=== PATIENT | male | born 1965 | race Caucasian/White ===

== ENCOUNTER 2020-10-16 06:24 | Outpatient (REF) | payer BC, SELFPAY | END 2020-10-16 06:25 | disposition home or self-care (01) | LOC: HO.LAB 06:24 | PROVIDERS: PCP Internal Medicine; Visit Provider Internal Medicine | DX: Z20.828 Contact with and (suspected) exposure to other viral communicable diseases (principal) | CPT/HCPCS: C9803; U0003 ==

== ENCOUNTER 2021-05-23 09:55 | Outpatient (REF) | payer BC, SELFPAY ==
[2021-05-23 10:40] LABS: MANUAL DIFF FLAG NO
[2021-05-23 10:54] LABS: Basophils Absolute Auto 0.1 X10*3/uL (0.0-0.2); Basophils Percent Auto 0.5 % (0-2); Eosinophils Absolute Auto 0.3 X10*3/uL (0.0-0.4); Eosinophils Percent Auto 3.2 % (0-4); Hematocrit 49.7 % (42-52); Hemoglobin 16.6 g/dl (14.0-18.0); Imm Gran Abs Auto 0.03 X10*3/uL (0.00-0.03); Imm Gran Pct Auto 0.3 % (0.0-0.4); Lymphocytes Absolute Auto 1.4 X10*3/uL (1.2-4.9); Lymphocytes Percent Auto 14.2 % (20-40); Mean Corpuscular HGB Conc 33.4 g/dl (31.0-36.0); Mean Corpuscular Hemoglobin 30.4 pg (27.0-33.0); Mean Platelet Volume 10.7 fL (9.4-12.4); Monocytes Absolute Auto 1.1 X10*3/uL (0.1-1.2); Monocytes Percent Auto 11.1 % (2-11); Neutrophils Absolute Auto 6.7 X10*3/uL (2.0-8.3); Neutrophils Percent Auto 70.7 % (45-73); Platelet Count 249 X10*3/uL (160-400); Red Blood Count 5.46 X10*6/uL (4.60-5.80); Red Cell Distribution Width 12.7 % (11.0-16.0); White Blood Count 9.5 X10*3/uL (4.8-10.8)
[2021-05-23 11:21] LABS: Alanine Aminotransferase 25 U/L (0-40); Albumin Level 4.2 g/dL (3.5-5.0); Alkaline Phosphatase 79 U/L (39-117); Anion Gap 12 (12-20); Aspartate Amino Transferase 16 U/L (5-37); Bilirubin Total 0.5 mg/dL (0.0-1.0); Blood Urea Nitrogen 14 mg/dL (9-16); Calcium 9.9 mg/dL (8.4-10.2); Carbon Dioxide 31 mmol/L (22-29); Chloride 104 mmol/L (96-108); Cholesterol 182 mg/dL; Estimated Glomerular Filt Rate > 60; Glucose Fasting 130 mg/dL (60-99); HDL Cholesterol 46 mg/dL; LDL Cholesterol Calculated 122 mg/dl; Potassium 4.6 mmol/L (3.3-5.1); Sodium 142 mmol/L (135-145); Total Protein 7.3 g/dL (6.5-8.0); Triglycerides 70 mg/dL
[2021-05-23 11:35] LABS: Thyroid Stimulating Hormone 0.64 uIU/mL (0.32-4.0)
== END 2021-05-23 09:56 | disposition home or self-care (01) ==
LOC: HO.LAB 09:55
PROVIDERS: PCP Internal Medicine; Visit Provider Internal Medicine
DX: Z00.00 Encounter for general adult medical examination without abnormal findings (principal); Z20.822 Contact with and (suspected) exposure to COVID-19; R09.89 Other specified symptoms and signs involving the circulatory and respiratory systems; E11.9 Type 2 diabetes mellitus without complications; E03.9 Hypothyroidism, unspecified
CPT/HCPCS: 80053; 80061; 84443; 85025; U0003; U0005

== ENCOUNTER 2021-05-24 10:05 | Outpatient (REF) | payer BC, SELFPAY ==
--- NOTE | ~2021-05-24 | XR_ITS ---
EXAMINATION: XR CHEST CLINICAL INFORMATION: Cough COMPARISON: None TECHNIQUE: 2 views of the chest were obtained. FINDINGS: No significant abnormality is noted involving the heart, lungs, mediastinum, bony thorax or soft tissues. XR/XR chest 2V IMPRESSION: No acute disease.
== END 2021-05-24 10:06 | disposition home or self-care (01) ==
LOC: HO.HMGCX 10:05
PROVIDERS: PCP Internal Medicine; Visit Provider Hospitalist
DX: Z20.822 Contact with and (suspected) exposure to COVID-19 (principal); R05 Cough
CPT/HCPCS: 71046; U0003; U0005

== ENCOUNTER 2021-05-31 07:51 | Emergency (ER) | payer BC, SELFPAY ==
[2021-05-31] VITALS (8 sets, daily range): BP systolic 118–142; BP diastolic 67–88; PULSE 63–79; RESP 12–20; TEMP 36.6–36.7; O2SAT 95–99; BMI 26.6
--- NOTE | ~2021-05-31 | CT_ITS ---
EXAMINATION: CT ANGIOGRAM OF THE CHEST WITH AND WITHOUT CONTRAST (CT PULMONARY ANGIOGRAM FOR PE) CLINICAL INFORMATION: Reason for Exam PE or Pneumonia? COMPARISON: Chest x-ray of same day TECHNIQUE: Prior to contrast administration, noncontrast localization images were obtained. Subsequently, multidetector volumetric imaging was performed from the thoracic inlet to below the diaphragms following the administration of 66 mL Omnipaque 350 intravenous contrast. No contrast reaction reported Sagittal, coronal, and MIP oblique sagittal reformatted images were obtained on the CT workstation, uploaded to PACS, and reviewed. This CT examination was performed using dose optimization techniques as appropriate, variously including the following: *Automated exposure control *Adjustment of mA and/or kV according to patient size (this includes techniques or standardized protocols for targeted exams where dose is matched to indication/reason for exam; i.e. extremities or head) *Use of iterative reconstruction technique Total exam dose-length product 292 mGy-cm FINDINGS: QUALITY OF STUDY/CONTRAST BOLUS: Satisfactory. PULMONARY ARTERIES: No central or segmental pulmonary emboli. THORACIC AORTA: No aneurysm or dissection. LUNG: No focal consolidation, nodules or masses. There are some scattered regions of nonspecific groundglass opacity present. No confluent pneumonitis is seen. Central airways are patent. No bronchiectasis. No suspicious lung nodules identified. PLEURA: No pleural effusion or pneumothorax. MEDIASTINUM: Visualized thyroid unremarkable. Normal heart size. No pericardial effusion. No hilar or mediastinal lymphadenopathy. No evidence of septal bowing or right heart strain. CHEST WALL/AXILLA: No axillary or internal mammary lymphadenopathy. OSSEOUS STRUCTURES: No acute or suspicious osseous abnormality. UPPER ABDOMEN: Unremarkable. No reflux of contrast into the hepatic veins to suggest elevated right heart pressures. CT/CT angio chest PE protocol IMPRESSION: No evidence of acute pulmonary artery embolus. No evidence of thoracic aortic aneurysm or dissection. VTE: negative
--- NOTE | ~2021-05-31 | XR_ITS ---
EXAMINATION: XR CHEST CLINICAL INFORMATION: Cough 1 week COMPARISON: None TECHNIQUE: Frontal view of the chest was obtained. FINDINGS: The lungs are well-expanded and clear. The heart size and pulmonary vascularity is normal. There is mild spondylosis dorsal spine. No lytic process. XR/XR chest 1V IMPRESSION: Unremarkable chest examination.
--- NOTE | 2021-05-31 09:36 | ECG_ITS ---
Test Reason : SOB Blood Pressure : / mmHG Vent. Rate : 074 BPM Atrial Rate : 074 BPM P-R Int : 144 ms QRS Dur : 096 ms QT Int : 366 ms P-R-T Axes : 044 -35 009 degrees QTc Int : 406 ms Normal sinus rhythm Left axis deviation Minimal voltage criteria for LVH, may be normal variant Abnormal ECG No previous ECGs available Referred By: Kaleb Grubbs Electronically Signed By:LEX BUTTS
[2021-05-31] MEDS: Albuterol Sulfate (0.083%) 2.5 MG/3 ML VIAL.NEB 5 MG INHALE (09:42)
--- NOTE | 2021-05-31 09:45 | PC.NURSE ---
RT at bedside starting a HFN treatment for patient. Pt continues to have intermittent coughing.
[2021-05-31] MEDS: guaiFEN/Codeine SF 200/20/10ML 10 ML LIQUID PO (09:48)
--- NOTE | 2021-05-31 09:58 | ED.SOB ---
HPI - SOB/Dyspnea General Chief Complaint: Dyspnea Stated Complaint: Sob Time Seen by Provider: 05/31/21 09:13 Source: patient Mode of arrival: ambulatory Limitations: no limitations History of Present Illness HPI Narrative: Patient presents to ED for pleuritic chest pain that is worse on exertion. Patient states also having cough with green phlegm. Patient denies any swelling of lower extremities, calf pain, recent long travel, recent surgery, abdominal pain, headache, dizziness, dysuria, hematuria, or flank pain. Patient states he was vaccinated with [employer] for COVID. Patient states he took last dose of doxycycline yesterday. MD elicited complaint: shortness of breath, cough and pain with inspiration Related Data Previous Rx's Medication Instructions Recorded doxycycline hyclate 100 mg tablet 100 mg PO BID #14 tab 05/24/21 prednisone 20 mg tablet 20 mg PO .COMPLEX #18 tab 05/24/21 amoxicillin 500 mg capsule 1,000 mg PO TID 5 Days #30 cap 05/31/21 benzonatate 100 mg capsule 100 mg PO TID PRN #18 cap 05/31/21 (Parvin Dumont) Allergies Allergy/AdvReac Type Severity Reaction Status Date / Time No Known Allergies Allergy Verified 05/24/21 09:54 Review of Systems Review of Systems: Yes all other systems are reviewed and are negative Constitutional: Constitutional: Reports as per HPI, Reports no additional constitutional complaints and Reports fatigue Eyes: Eyes: Reports as per HPI and Reports no additional eye complaints ENT: Reports system reviewed and no additional complaints, except as documented and Reports as per HPI Cardiovascular: Cardiovascular: Reports as per HPI, Reports no additional cardiovascular complaints and Reports chest pain with activity Respiratory: Respiratory: Reports as per HPI, Reports no additional respiratory complaints, Reports excessive phlegm production (Green), Reports pain on inspiration and Reports pain with cough Gastrointestinal: Gastrointestinal: Reports as per HPI and Reports no additional gastrointestinal complaints Genitourinary: Genitourinary: Reports no additional male genitourinary complaints and Reports as per HPI Musculoskeletal: Musculoskeletal: Reports no additional musculoskeletal complaints and Reports as per HPI Integumentary/Breasts: Skin/Breast: Reports system reviewed and no additional complaints, except as docu and Reports as per HPI Neurologic: Reports system reviewed and no additional complaints, except as documented and Reports as per HPI Endocrine: Endocrine: Reports fatigue [facility] Past Medical History Surgical History History of ankle surgery History of carpal tunnel release History of knee surgery Family History Family History Father Bone cancer Mother Alzheimer's dementia Brother In good health Brother In good health Sister In good health Sister In good health Sister In good health Sister In good health Social History Social History Alcohol intake: current Alcohol intake frequency: holidays/special occasions only Alcohol type: wine Patient Tobacco Use Status: Never used Tobacco Use of substances other than those prescribed or required for medical reasons: No Advance Directives: No Advance Directives Information Provided: No Physical Exam Vital Signs: Vital Signs: Last Vital Signs Temp 98.0 F 05/31/21 14:09 Pulse 73 05/31/21 15:22 Resp 14 05/31/21 15:22 BP 129/84 05/31/21 15:22 Pulse Ox 97 05/31/21 15:22 Body Mass Index 26.6 Const: General: cooperative, healthy appearing, comfortable, no acute distress, well developed, alert, awake and Physically active Orientation/consciousness: patient oriented x3 HENMT: Head: Yes normal to inspection, Yes No palpable skull fracture present, Yes normocephalic, Yes atraumatic and No abrasion Ears: hearing grossly normal bilaterally, external ears normal, TM's normal bilaterally, TM normal on the right, TM normal on the left, EAC's normal, mastoids normal and no periauricular adenopathy General nose exam: Normal external nose present and Normal nares present Eyes: General: appearance normal, both eyes and all related structures Neck: Neck: Yes normal visual inspection, Yes full ROM, Yes no lymphadenopathy, Yes no meningeal signs, Yes trachea midline, Yes supple and No tender Chest: Chest palpation & inspection: normal inspection of the chest and normal palpation of entire chest wall Resp: Effort & Inspection: normal respiratory effort and able to speak in complete sentences Auscultation: clear to auscultation bilaterally Cardio: Jugular venous distension: no JVD Heart sounds: S1 normal heart sound present and S2 normal heart sound present GI: Inspection: Yes normal to inspection and No abdominal wall ecchymosis Palpation (GI): Soft to palpation, not firm, nontender, no guarding and not rigid : General: No CVA tenderness and Yes no CVA tenderness Back/Spine/Pelvis: Back: no CVA tenderness, No CVA tenderness and No back tenderness Skin: General skin exam: no rashes or lesions noted and elasticity normal Neuro: General: patient oriented x3, gait normal, no meningeal signs and absent sensation to monofilament Cranial nerves: Yes CN's II-XII intact bilaterally Extrem: Other: Lower extremities negative for any swelling, pitting edema, calf tenderness. General: Yes normal to inspection and Yes full ROM Right lower extremity: normal to inspection and full ROM Psych: Appearance: grossly normal, well kempt and not disheveled Course Course Course Narrative: Patient will have medical evaluation and will be given albuterol inhaler and cough medication Reevaluation(s) Reevaluation #1: Patient's troponin, EKG and D-dimer came back negative. Has a white count [id number]. Patient vital signs are stable. Chest x-ray negative for pneumonia. Was sent for chest CT Time: 09:49 Reevaluation #2: Chest CT a come back negative for PE and states no pneumonitis, consolidation, or obvious pneumonia. It does states ground-glass opacity. Case discussed with Dr. Hercules and patiet can be discharged with oral amoxicillin Time: 15:47 MDM - SOB/Dyspnea Lab Data Result diagrams: 05/31/21 09:49 05/31/21 09:49 Labs: Lab Results 05/31/21 05/31/21 05/31/21 Range/Units 09:49 09:49 09:49 WBC 16.9 H (4.8-10.8) X10*3/uL RBC 5.40 (4.60-5.80) X10*6/uL Hgb 16.2 (14.0-18.0) g/dl Hct 47.6 (42-52) % MCV 88.1 (80-98) fL MCH 30.0 (27.0-33.0) pg MCHC 34.0 (31.0-36.0) g/dl RDW 12.9 (11.0-16.0) % Plt Count 280 (160-400) X10*3/uL MPV 10.0 (9.4-12.4) fL Immature Gran % (Auto) Cancelled Neut % (Auto) Cancelled Lymph % (Auto) Cancelled [place] % (Auto) Cancelled Eos % (Auto) Cancelled Baso % (Auto) Cancelled Lymph # (Auto) Cancelled [place] # (Auto) Cancelled Eos # (Auto) Cancelled Baso # (Auto) Cancelled Abs Immat Gran (auto) Cancelled Absolute Neuts (auto) Cancelled Absolute Nucleated RBC 0.000 (0.0-0.012) X10*3/uL Nucleated RBC % (auto) 0.0 (0.0-0.2) /100WBC Neutrophils % (Manual) 81 H (45-73) % Band Neutrophils % 2 L (3-5) % Lymphocytes % (Manual) 8 L (20-40) % Monocytes % (Manual) 8 (2-11) % Eosinophils % (Manual) 1 (0-4) % Abs Neuts (Manual) 14.0 H (2.2-7.9) X10*3/uL Lymphocytes # (Manual) 1.4 (0.6-4.8) X10*3/uL Monocytes # (Manual) 1.4 H (0.0-1.2) X10*3/uL Eosinophils # (Manual) 0.2 (0.0-0.8) X10*3/UL Platelet Estimate NORMAL (NORMAL) Plt Morphology Comment NORMAL RBC Morphology NORMAL PT 10.4 (9.9-13.0) SEC INR 0.9 (0.9-1.1) APTT 27.1 (24.1-38.0) SEC D-Dimer < 200 NG/ML Sodium 141 (135-145) mmol/L Potassium 4.8 (3.3-5.1) mmol/L Chloride 106 (96-108) mmol/L Carbon Dioxide 25 (22-29) mmol/L Anion Gap 15 (12-20) BUN 17 H (9-16) mg/dL Creatinine 0.87 (0.5-1.4) mg/dL Estim Creat Clear Calc 92.5 Estimated GFR > 60 Random Glucose 124 H (60-115) mg/dL Calcium 9.4 (8.4-10.2) mg/dL Ferritin 211 (20-250) ng/mL Total Bilirubin 0.4 (0.0-1.0) mg/dL AST 18 (5-37) U/L ALT 24 (0-40) U/L Alkaline Phosphatase 66 (39-117) U/L Lactate Dehydrogenase 229 (118-273) U/L Troponin I High Sens (<3.5-35.0) ng/L B-Natriuretic Peptide (<100) pg/mL Total Protein 6.6 (6.5-8.0) g/dL Albumin 3.8 (3.5-5.0) g/dL Procalcitonin ng/mL Coronavirus (PCR) (Negative) Influenza Type A (PCR) (Negative) Influenza Type B (PCR) (Negative) RSV RNA Qual (PCR) (Negative) 05/31/21 05/31/21 05/31/21 Range/Units 09:49 09:49 09:49 WBC (4.8-10.8) X10*3/uL RBC (4.60-5.80) X10*6/uL Hgb (14.0-18.0) g/dl Hct (42-52) % MCV (80-98) fL MCH (27.0-33.0) pg MCHC (31.0-36.0) g/dl RDW (11.0-16.0) % Plt Count (160-400) X10*3/uL MPV (9.4-12.4) fL Immature Gran % (Auto) Neut % (Auto) Lymph % (Auto) [place] % (Auto) Eos % (Auto) Baso % (Auto) Lymph # (Auto) [place] # (Auto) Eos # (Auto) Baso # (Auto) Abs Immat Gran (auto) Absolute Neuts (auto) Absolute Nucleated RBC (0.0-0.012) X10*3/uL Nucleated RBC % (auto) (0.0-0.2) /100WBC Neutrophils % (Manual) (45-73) % Band Neutrophils % (3-5) % Lymphocytes % (Manual) (20-40) % Monocytes % (Manual) (2-11) % Eosinophils % (Manual) (0-4) % Abs Neuts (Manual) (2.2-7.9) X10*3/uL Lymphocytes # (Manual) (0.6-4.8) X10*3/uL Monocytes # (Manual) (0.0-1.2) X10*3/uL Eosinophils # (Manual) (0.0-0.8) X10*3/UL Platelet Estimate (NORMAL) Plt Morphology Comment RBC Morphology PT (9.9-13.0) SEC INR (0.9-1.1) APTT (24.1-38.0) SEC D-Dimer NG/ML Sodium (135-145) mmol/L Potassium (3.3-5.1) mmol/L Chloride (96-108) mmol/L Carbon Dioxide (22-29) mmol/L Anion Gap (12-20) BUN (9-16) mg/dL Creatinine (0.5-1.4) mg/dL Estim Creat Clear Calc Estimated GFR Random Glucose (60-115) mg/dL Calcium (8.4-10.2) mg/dL Ferritin (20-250) ng/mL Total Bilirubin (0.0-1.0) mg/dL AST (5-37) U/L ALT (0-40) U/L Alkaline Phosphatase (39-117) U/L Lactate Dehydrogenase (118-273) U/L Troponin I High Sens < 3.5 (<3.5-35.0) ng/L B-Natriuretic Peptide 17 (<100) pg/mL Total Protein (6.5-8.0) g/dL Albumin (3.5-5.0) g/dL Procalcitonin 0.02 ng/mL Coronavirus (PCR) NEGATIVE (Negative) Influenza Type A (PCR) NEGATIVE (Negative) Influenza Type B (PCR) NEGATIVE (Negative) RSV RNA Qual (PCR) NEGATIVE (Negative) ECG Data Interpretation: Normal sinus rhythm. Ventricular rate 74. Pr interval 144. QRS 96. QTC 4 6. Negative STEMI Discharge Plan Discharge Clinical Impression: Community acquired pneumonia Patient Disposition: Home, Self-Care Instructions: Bacterial Pneumonia (ED) Additional Instructions: COVID swab came back negative. EKG and troponin were negative for heart attack. Chest CTA negative for pulmonary embolism or obvious pneumonia. Does states some ground-glass opacity. The kidney function came back normal. Your blood count came back normal. You will be sent home with another antibiotic. Return to the ED for any lower extremity swelling, crushing chest pain, shortness of breath, weakness, dizziness, fever, chills, coughing up blood, or any other concerning symptoms. Please follow up with your PCP. Prescriptions: New amoxicillin 500 mg capsule 1,000 mg PO TID 5 Days Qty: 30 RF: 0 benzonatate [Tessalon Perles] 100 mg capsule 100 mg PO TID PRN (Reason: pain) Qty: 18 RF: 0 No Action prednisone 20 mg tablet 20 mg PO .COMPLEX Qty: 18 RF: 0 doxycycline hyclate 100 mg tablet 100 mg PO BID Qty: 14 RF: 0 Referrals: Santos Salcedo MD [Primary Care Provider] - 2 days (EKG troponin negative. COVID swab negative. Chest CT negative for pulmonary embolus or obvious pneumonia, does states some opacity. Patient will be discharged with amoxicillin. ) Stand Alone Forms: Work/School Release Interventions: ED Discharge Assessment Last Done: 05/31/21 16:04 Discharge Date/Time: 05/31/21 16:04 Print Language: Georgian
[2021-05-31 10:13] LABS: Hematocrit 47.6 % (42-52); Hemoglobin 16.2 g/dl (14.0-18.0); INTERNATIONAL NORM RATIO 0.9 (0.9-1.1); Mean Corpuscular Volume 88.1 fL (80-98); Platelet Count 280 X10*3/uL (160-400); Prothrombin Time 10.4 SEC (9.9-13.0); Red Cell Distribution Width 12.9 % (11.0-16.0); White Blood Count 16.9 X10*3/uL (4.8-10.8)
[2021-05-31 10:15] LABS: Partial Thromboplastin Time 27.1 SEC (24.1-38.0)
[2021-05-31 10:18] LABS: D Dimer < 200 NG/ML
[2021-05-31 10:35] LABS: Band Neutrophils Percent 2 % (3-5); Eosinophils Absolute Manual 0.2 X10*3/UL (0.0-0.8); Eosinophils Percent Manual 1 % (0-4); Lymphocytes Absolute Manual 1.4 X10*3/uL (0.6-4.8); Lymphocytes Percent Manual 8 % (20-40); Monocytes Absolute Manual 1.4 X10*3/uL (0.0-1.2); Monocytes Percent Manual 8 % (2-11); Neutrophils Percent Manual 81 % (45-73)
[2021-05-31 10:36] LABS: Platelet Estimate NORMAL (NORMAL); Platelet Morphology Comment NORMAL; RBC Morphology NORMAL
--- NOTE | 2021-05-31 10:42 | PC.NURSE ---
Patient is ambulatory to the bathroom and back without difficulty. Pt states he does not feel any better after breathing treatment.
[2021-05-31 10:46] LABS: Alanine Aminotransferase 24 U/L (0-40); Albumin Level 3.8 g/dL (3.5-5.0); Alkaline Phosphatase 66 U/L (39-117); Anion Gap 15 (12-20); Aspartate Amino Transferase 18 U/L (5-37); Bilirubin Total 0.4 mg/dL (0.0-1.0); Blood Urea Nitrogen 17 mg/dL (9-16); Calcium 9.4 mg/dL (8.4-10.2); Carbon Dioxide 25 mmol/L (22-29); Chloride 106 mmol/L (96-108); Creatinine Clr Calc Pharmacy 92.5; Estimated Glomerular Filt Rate > 60; Glucose Random 124 mg/dL (60-115); Potassium 4.8 mmol/L (3.3-5.1); Sodium 141 mmol/L (135-145); Total Protein 6.6 g/dL (6.5-8.0)
[2021-05-31 10:48] LABS: B Type Natriuretic Peptide 17 pg/mL (<100); Troponin-I High Sensitivity < 3.5 ng/L (<3.5-35.0)
[2021-05-31 10:58] LABS: Lactate Dehydrogenase 229 U/L (118-273)
[2021-05-31 11:04] LABS: Ferritin 211 ng/mL (20-250)
[2021-05-31 11:09] LABS: Procalcitonin 0.02 ng/mL
--- NOTE | 2021-05-31 11:44 | PC.NURSE ---
Patient is sitting up in bed in no acute distress. Pt states coughing is better. Pt states chest hurts if he starts coughing, otherwise he is not in any pain.
[2021-05-31 12:07] LABS: Influenza A PCR NEGATIVE (Negative); Influenza B PCR NEGATIVE (Negative); Resp Syncy Virus RNA Qual PCR NEGATIVE (Negative); SARS COV2 PCR INHOUSE NEGATIVE (Negative)
--- NOTE | 2021-05-31 13:06 | PC.NURSE ---
Patient is back from CT. Pt denies any chest pain currently. Pt states he does feel short of breath still. Respirations are even and nonlabored.
[2021-05-31] MEDS: iohexoL 350 MG/ML 100 ML INFUS..BTL IV ×2 (13:16→14:41)
--- NOTE | 2021-05-31 15:23 | PC.NURSE ---
Patient is resting quietly in bed with eyes closed in no distress
--- NOTE | 2021-05-31 16:03 | PC.NURSE ---
Discharge instructions given to pt who verbalized understanding and denies any questions. Peripheral iv removed and pressure bandage applied.
== END 2021-05-31 16:04 | disposition home or self-care (01) ==
PROVIDERS: Physician Assistant; Emergency Provider Emergency Medicine; PCP Internal Medicine
DX: J18.9 Pneumonia, unspecified organism (principal); R06.00 Dyspnea, unspecified; Z20.822 Contact with and (suspected) exposure to COVID-19; Z79.899 Other long term (current) drug therapy
CPT/HCPCS: 0241U; 36415; 71045; 71275; 80053; 82728; 83615; 83880; 84145; 84484; 85007; 85027; 85379; 85610; 85730; 93005; 94640; 99285; Q9967

== ENCOUNTER 2022-02-27 10:51 | Outpatient (REF) | payer BC, SELFPAY ==
[2022-02-27 11:15] LABS: MANUAL DIFF FLAG NO
[2022-02-27 11:54] LABS: Basophils Percent Auto 0.6 % (0-2); Eosinophils Percent Auto 0.3 % (0-4); Hematocrit 48.4 % (42.0-52.0); Hemoglobin 16.4 g/dl (14.0-18.0); Imm Gran Abs Auto 0.02 X10*3/uL (0.00-0.03); Imm Gran Pct Auto 0.3 % (0.0-0.4); Lymphocytes Absolute Auto 0.8 X10*3/uL (1.2-4.9); Lymphocytes Percent Auto 12.4 % (20-40); Mean Corpuscular HGB Conc 33.9 g/dl (31.0-36.0); Mean Corpuscular Hemoglobin 30.4 pg (27.0-33.0); Mean Corpuscular Volume 89.8 fL (80.0-98.0); Mean Platelet Volume 10.4 fL (9.4-12.4); Monocytes Absolute Auto 0.7 X10*3/uL (0.1-1.2); Neutrophils Absolute Auto 4.6 x10*3/uL (2.0-8.3); Neutrophils Percent Auto 74.4 % (45-73); Platelet Count 211 X10*3/uL (160-400); Red Blood Count 5.39 X10*6/uL (4.60-5.80); White Blood Count 6.2 X10*3/uL (4.8-10.8)
[2022-02-27 12:46] LABS: Alanine Aminotransferase 28 U/L (0-40); Albumin Level 4.2 g/dL (3.5-5.0); Alkaline Phosphatase 78 U/L (39-117); Anion Gap 12 (12-20); Aspartate Amino Transferase 22 U/L (5-37); Bilirubin Total 0.9 mg/dL (0.0-1.0); Blood Urea Nitrogen 14 mg/dL (9-16); Calcium 9.6 mg/dL (8.4-10.2); Carbon Dioxide 29 mmol/L (22-29); Chloride 102 mmol/L (96-108); Cholesterol 199 mg/dL; Estimated Glomerular Filt Rate > 60; Glucose Fasting 99 mg/dL (60-99); HDL Cholesterol 49 mg/dL; LDL Cholesterol Calculated 139 mg/dl; Potassium 4.8 mmol/L (3.3-5.1); Sodium 138 mmol/L (135-145); Total Protein 7.1 g/dL (6.5-8.0); Triglycerides 59 mg/dL
[2022-02-27 12:54] LABS: Prostate Specific Antigen Scr 1.88 ng/mL (<0.05-4.0)
== END 2022-02-27 10:52 | disposition home or self-care (01) ==
LOC: HO.LAB 10:51
PROVIDERS: PCP Internal Medicine; Visit Provider Internal Medicine
DX: Z00.00 Encounter for general adult medical examination without abnormal findings (principal); Z13.0 Encounter for screening for diseases of the blood and blood-forming organs and certain disorders involving the immune mechanism; Z13.220 Encounter for screening for lipoid disorders; Z12.5 Encounter for screening for malignant neoplasm of prostate
CPT/HCPCS: 36415; 80053; 80061; 84153; 85025

== ENCOUNTER 2022-03-01 09:48 | Outpatient (REF) | payer BC, SELFPAY ==
[2022-03-01 12:05] LABS: Alanine Aminotransferase 78 U/L (0-40); Alkaline Phosphatase 87 U/L (39-117); Anion Gap 8 (12-20); Aspartate Amino Transferase 54 U/L (5-37); Bilirubin Total 0.7 mg/dL (0.0-1.0); Blood Urea Nitrogen 10 mg/dL (9-16); Calcium 9.3 mg/dL (8.4-10.2); Carbon Dioxide 30 mmol/L (22-29); Chloride 103 mmol/L (96-108); Estimated Glomerular Filt Rate > 60; Glucose Random 115 mg/dL (60-115); Potassium 4.4 mmol/L (3.3-5.1); Sodium 137 mmol/L (135-145)
[2022-03-04 18:41] LABS: Lyme Abs Screen <0.90 index
== END 2022-03-01 09:49 | disposition home or self-care (01) ==
LOC: HO.HMGCLDS 09:48
PROVIDERS: Visit Provider Nurse Practitioner Acute Care
DX: T14.8XXA Other injury of unspecified body region, initial encounter (principal); W57.XXXA Bitten or stung by nonvenomous insect and other nonvenomous arthropods, initial encounter; R68.89 Other general symptoms and signs; M25.50 Pain in unspecified joint
CPT/HCPCS: 36415; 80053; 86617; 86618

== ENCOUNTER 2022-11-18 10:25 | Emergency (ER) | payer BC, SELFPAY ==
--- NOTE | ~2022-11-18 | XR_ITS ---
EXAMINATION: XR KNEE, LEFT CLINICAL INFORMATION: Knee injury COMPARISON: None TECHNIQUE: Four views of the left knee. FINDINGS: Marked tricompartmental degenerative changes are seen most marked in the patellofemoral compartment and the medial compartment with narrowing and sclerosis. Moderate joint effusion is present. There is a ovoid bony opacity seen beneath the patella which may represent a intraarticular osseous body. Prior orthopedic surgery seen with small plate and screw distal femoral metaphysis ventrally as well as a single screw present in the tibial metaphysis. No acute fracture is seen. XR/XR knee LT 2V IMPRESSION: Marked tricompartmental degenerative changes with joint effusion. No acute fracture is seen. Probable intra-articular osseous body.
[2022-11-18 10:49] VITALS: BP 143/91; PULSE 89; RESP 18; TEMP 37; O2SAT 95; BMI 26.6
--- NOTE | 2022-11-18 11:40 | ED.GENADULT ---
HPI - General Adult General Chief complaint: Extremity Injury, Lower Stated complaint: twisted l knee Time Seen by Provider: 11/18/22 11:34 Source: patient Mode of arrival: ambulatory Limitations: no limitations History of Present Illness HPI narrative: Patient is a 57 year old assigned male at with a history of left ACL repair presenting to the emergency department today with left knee pain. Patient states that on Friday, he got up wrong and twisted his left knee. Patient states that ever since then he has had pain. Patient denies any dizziness, lightheadedness, abdominal pain, nausea, vomiting, fever, chills, blurry vision, double vision, loss of vision, chest pain, difficulty breathing, shortness of breath, back pain, night sweats, pain with urination, increased urinary frequency, increased urinary urgency, blood in his urine or stool, syncope or a near syncopal episode, bowel incontinence, bladder incontinence, bowel retention, bladder retention, or any other complaints at this time. Onset (ago): day(s) (3) Location: left and lower extremity Radiation: non-radiation Severity: mild Severity scale (1-10): 3 Relieving factors: none Exacerbating factors: none Associated symptoms: denies other symptoms Treatments prior to arrival: none Related Data Home Medications Medication Instructions Recorded Confirmed ascorbate calcium (vitamin C) 500 500 mg PO DAILY 01/22/22 01/22/22 mg tablet cholecalciferol (vitamin D3) 25 25 mcg PO DAILY 01/22/22 01/22/22 mcg (1,000 unit) capsule Previous Rx's Medication Instructions Recorded ibuprofen 800 mg tablet 800 mg PO Q8H PRN pain #20 tabs 03/01/22 oseltamivir 75 mg capsule (Tamiflu) 75 mg PO BID 5 days #10 caps 03/01/22 Allergies Allergy/AdvReac Type Severity Reaction Status Date / Time No Known Allergies Allergy Verified 03/01/22 09:27 Review of Systems Constitutional: Constitutional: Reports no additional constitutional complaints, Denies chills, Denies fever(s) and Denies night sweats Eyes: Eyes: Reports no additional eye complaints, Denies blurry vision, Denies change in vision, Denies diplopia, Denies eye discharge, Denies loss of vision and Denies eye pain ENT: Denies dizziness Cardiovascular: Cardiovascular: Reports no additional cardiovascular complaints, Denies chest pain, Denies lightheadedness, Denies Loss of Consciousness and Denies dyspnea Respiratory: Respiratory: Reports no additional respiratory complaints and Denies dyspnea Gastrointestinal: Gastrointestinal: Reports no additional gastrointestinal complaints, Denies abdominal pain, Denies melena, Denies hematochezia, Denies change in bowel habits and Denies change in stool character Genitourinary: Genitourinary: Reports no additional male genitourinary complaints, Denies hematuria, Denies oliguria, Denies difficulty urinating, Denies dysuria, Denies urinary frequency, Denies urinary hesitancy, Denies urinary incontinence and Denies urinary urgency Musculoskeletal: Musculoskeletal: Reports no additional musculoskeletal complaints, Denies numbness and Denies tingling Comments: left knee pain Neurologic: Denies dizziness, Denies loss of vision, Denies numbness and Denies tingling Psychiatric: Psychiatric: Reports no additional psychiatric complaints Endocrine: Endocrine: Reports no additional endocrine complaints Hematologic/Lymphatic: Hematologic/Lymphatic: Reports no additional hematologic/lymphatic complaints Allergic/Immunologic: Allergic/Immunologic: Reports no additional allergic/immunologic complaints [facility] Past Medical History Attestation statement: The following information was validated with the patient. Source: old records reviewed and nursing notes reviewed Surgical History History of ankle surgery History of carpal tunnel release History of knee surgery Family History Family History Father Bone cancer Mother Alzheimer's dementia Brother In good health Brother In good health Sister In good health Sister In good health Sister In good health Sister In good health Social History Social History Housing: House Alcohol intake: never Patient Tobacco Use Status: Former Tobacco user Tobacco use type: Cigarette Smoked in Last 30 Days: No e-Cigarette/Vaping Use: Never Used Second Hand Smoke Exposure: No Use of substances other than those prescribed or required for medical reasons: No Advance Directives: No Advance Directives Information Provided: Yes service: No Current occupational status: employed Cognitive needs: No Hearing needs: No Vision needs: No Physical Exam ED Vital Signs: Vital Signs - 24 hr 11/18/22 10:49 11/18/22 12:42 Temperature 98.6 F 99.2 F Pulse Rate 89 81 Respiratory Rate 18 Blood Pressure 143/91 H 147/86 H Pulse Oximetry 95 92 Oxygen Delivery Method Room Air Room Air BMI result Body Mass Index 26.6 Const General: cooperative, no acute distress, alert and awake Nutritional Appearance: well nourished Orientation/consciousness: patient oriented x3 Limitations: no limitations HENMT Head: Yes normal to inspection and Yes atraumatic Ears: hearing grossly normal bilaterally and external ears normal General nose exam: Normal external nose present, no nasal discharge noted and no epistaxis Face and sinus: Yes normal facial exam, No abrasion and No laceration Mouth: Normal oral and palatal mucosa present, no drooling and no muffled voice Eyes General: appearance normal, both eyes and all related structures Periorbital: periorbital findings normal Eyelids: Yes eyelids normal Conjunctivae: conjunctivae normal Pupils: Equal, round and reactive pupils present EOM: EOMs intact bilaterally Neck Neck: Yes normal visual inspection, Yes full ROM and Yes no lymphadenopathy Chest Chest palpation & inspection: normal inspection of the chest Resp Effort & Inspection: normal respiratory effort and able to speak in complete sentences Auscultation: clear to auscultation bilaterally Cardio Rate: regular rate Rhythm: regular rhythm GI Inspection: Yes normal to inspection Neuro General: patient oriented x3 and moves all extremities Cranial nerves: Yes Equal, round and reactive pupils present Cognition (Neuro): normal cognition Motor exam (neuro): 5/5 motor strength present throughout Sensory Exam: Normal double simultaneous stimulation for sensation Coordination: [id number] test normal Extrem Other: minimal swelling present to the left knee General: Yes full ROM and Yes capillary refill normal Psych Appearance: grossly normal Mental Status: mental status grossly normal Affect: normal affect Attitude: cooperative Thought process: Normal thought process present Thought content: Normal thought content present Insight: Good insight present (Psych) Procedures Orthopedic Splinting/Casting Injury #1: Side: left Lower Extremity Injury Location: knee Lower Extremity Immobilizer: knee immobilizer Medical Decision Making Medical Decision Making MDM Narrative: Patient is a 57 year old assigned male at with a history of left ACL repair presenting to the emergency department today with left knee pain. Patient's physical exam showed minimal swelling to the left knee. Patient's left knee x-ray showed a joint effusion with no acute fracture. I explained my physical exam findings as well as all test results to the patient. I answered all questions asked by the patient. Patient's left knee was placed in an immobilizer, without incident. Patient came in with his own crutches. I stressed the importance of the patient taking his medication as prescribed. I stressed the importance of the patient following up with his primary care provider and an orthopedic provider. I stressed the importance of the patient returning to the emergency department immediately if his symptoms were to worsen or if he were to develop any dizziness, shortness of breath, difficulty breathing, chest pain, blurry vision, loss of vision, nausea, vomiting, abdominal pain, fever, chills, back pain, or any other complaints. Patient verbalized agreement and understanding with this treatment plan and discharge. Differential Diagnosis Differential Diagnoses: The differential diagnosis associated with the presentation includes left knee pain Radiology Impression Discussion of test interpretation with radiology: I have reviewed the radiologist's reading. Radiologist Impression: My interpretation is in agreement with the radiologist's impression of this imaging study. EXAMINATION: XR KNEE, LEFT CLINICAL INFORMATION: Knee injury? COMPARISON: None? TECHNIQUE: Four views of the left knee. FINDINGS: Marked tricompartmental degenerative changes are seen most marked in the patellofemoral compartment and the medial compartment with narrowing and sclerosis. Moderate joint effusion is present. There is a ovoid bony opacity seen beneath the patella which may represent a intraarticular osseous body. Prior orthopedic surgery seen with small plate and screw distal femoral metaphysis ventrally as well as a single screw present in the tibial metaphysis. No acute fracture is seen. XR/XR knee LT 2V IMPRESSION: Marked tricompartmental degenerative changes with joint effusion. No acute fracture is seen. Probable intra-articular osseous body. Dictated By: Blake Thompson MD Signed By: Electronically signed by Blake Thompson MD 11/18/22 [id number] Discharge Plan Discharge Clinical Impression: Injury of knee Patient Disposition: Home, Self-Care Instructions: Crutch Instructions (ED) Additional Instructions: Follow up with your primary care provider and an orthopedist. Return to the emergency department immediately if your symptoms worsen or if you develop any dizziness, shortness of breath, difficulty breathing, chest pain, blurry vision, loss of vision, nausea, vomiting, abdominal pain, fever, chills, back pain, or any other complaints. Prescriptions: No Action cholecalciferol (vitamin D3) 25 mcg (1,000 unit) capsule 25 mcg PO DAILY ascorbate calcium (vitamin C) 500 mg tablet 500 mg PO DAILY oseltamivir [Tamiflu] 75 mg capsule 75 mg PO BID 5 Days Qty: 10 0RF ibuprofen 800 mg tablet 800 mg PO Q8H PRN (Reason: pain) Qty: 20 0RF Referrals: [facility] [Provider Group] (Call to establish and follow up with an orthopedic provider.) Santos Salcedo MD [Primary Care Provider] - Interventions: ED Discharge Assessment Last Done: 11/18/22 13:58 Discharge Date/Time: 11/18/22 13:59 Print Language: Yi
[2022-11-18 12:42] VITALS: BP 147/86; PULSE 81; TEMP 37.3; O2SAT 92
== END 2022-11-18 13:59 | disposition home or self-care (01) ==
PROVIDERS: Emergency Provider Emergency Medicine; PCP Internal Medicine
DX: S89.92XA Unspecified injury of left lower leg, initial encounter (principal); X58.XXXA Exposure to other specified factors, initial encounter; Y93.9 Activity, unspecified; Y92.019 Unspecified place in single-family (private) house as the place of occurrence of the external cause; Y99.9 Unspecified external cause status
CPT/HCPCS: 73560; 99283; 99284

== ENCOUNTER 2022-12-02 17:02 | Outpatient (REF) | payer BC, SELFPAY ==
--- NOTE | ~2022-12-02 | XR_ITS ---
EXAMINATION: XR KNEE AP STANDING XR KNEE, LEFT CLINICAL INFORMATION: Pain. COMPARISON: Radiographs dated 11/18/2022. TECHNIQUE: AP bilateral standing view of the knees was obtained. An axial view of the left knee is submitted. FINDINGS: There is mild asymmetric narrowing of the medial joint space compartment of the right knee, and the lateral joint space compartment of the right knee is well-maintained. There is moderately severe asymmetric narrowing of the medial joint space compartment the left knee. The lateral and patellofemoral joint space compartments are well-maintained and show mild peripheral osteophyte formation. No fracture or dislocation is seen. There is orthopedic hardware related to a prior left ACL repair. There is a mild varus configuration of the bilateral knees. XR/XR knee standing BI IMPRESSION: 1. There is mild osteoarthritic change of the medial joint space compartment of the right knee. 2. There is moderately severe osteoarthritic change of the medial joint space compartment of the left knee. 3. There is orthopedic hardware related to a prior left ACL repair. 4. The bilateral knees show a mild varus configuration.
--- NOTE | ~2022-12-02 | XR_ITS ---
EXAMINATION: XR KNEE AP STANDING XR KNEE, LEFT CLINICAL INFORMATION: Pain. COMPARISON: Radiographs dated 11/18/2022. TECHNIQUE: AP bilateral standing view of the knees was obtained. An axial view of the left knee is submitted. FINDINGS: There is mild asymmetric narrowing of the medial joint space compartment of the right knee, and the lateral joint space compartment of the right knee is well-maintained. There is moderately severe asymmetric narrowing of the medial joint space compartment the left knee. The lateral and patellofemoral joint space compartments are well-maintained and show mild peripheral osteophyte formation. No fracture or dislocation is seen. There is orthopedic hardware related to a prior left ACL repair. There is a mild varus configuration of the bilateral knees. XR/XR knee LT 1V IMPRESSION: 1. There is mild osteoarthritic change of the medial joint space compartment of the right knee. 2. There is moderately severe osteoarthritic change of the medial joint space compartment of the left knee. 3. There is orthopedic hardware related to a prior left ACL repair. 4. The bilateral knees show a mild varus configuration.
== END 2022-12-02 17:03 | disposition home or self-care (01) ==
LOC: HO.HOSX 17:02
PROVIDERS: Visit Provider Physician Assistant
DX: M17.12 Unilateral primary osteoarthritis, left knee (principal)
CPT/HCPCS: 73560; 73565

== ENCOUNTER 2022-12-17 18:28 | Outpatient (REF) | payer BC, SELFPAY ==
--- NOTE | ~2022-12-17 | XR_ITS ---
Examination: XR pre mri screening Indication: PRE MRI Comparison: No pertinent prior studies are currently available for comparison. Technique: 3 views the orbits were obtained. Findings: No radiopaque foreign body seen overlying the orbits. Paranasal sinuses are well aerated and unremarkable. No acute bony abnormality. XR/XR pre mri screening Impression: No radiopaque foreign body seen.
--- NOTE | ~2022-12-17 | MR_ITS ---
EXAMINATION: MR KNEE WITHOUT CONTRAST, LEFT CLINICAL INFORMATION: Unilateral primary osteoarthritis of the left knee. Clicking. COMPARISON: Radiograph dated 12/02/2022. TECHNIQUE: MRI of the knee without contrast was performed using routine sequences on a high-field scanner. FINDINGS: MENISCI: Medial Meniscus: Largely absent, most consistent with chronic changes of prior partial meniscectomy. The minimal residual meniscal tissue at the posterior horn and body appears macerated. The residual anterior meniscal tissue is torn and anteriorly extruded at the jointline. Lateral Meniscus: High-grade posterior root avulsion with a meniscal gap measuring 8 mm. A horizontal tear is present in the anterior horn. LIGAMENTS: Cruciate: ACL graft was chronically torn and resorbed. PCL is thickened with increased intrasubstance signal, most consistent with mucoid degeneration. Collateral: Edema signal around the MCL is likely reactive to the underlying articular abnormality. Collateral ligaments are intact. EXTENSOR MECHANISM: Minimal patellar tendinosis at the tibial tuberosity origin. No tears. ARTICULAR CARTILAGE/BONE: Patellofemoral Compartment: There is a 1 x 1 cm area of [id number] partial-thickness cartilage loss at the median ridge of the patella with ill-defined margins. Patellar cartilage is otherwise normal. Small marginal osteophytes. There is a 2.2 x 2.3 cm region of moderate partial-thickness cartilage loss in the central trochlea with an associated central osteophyte at a site of more high-grade, full-thickness cartilage loss. Multiple loose bodies are present in the anterior aspect of the joint, abutting the trochlea and distorting the adjacent Hoffa's fat pad. Medial Compartment: Marked full-thickness articular cartilage loss is present at the majority of the medial compartment, sparing portions of the lateral margin, associated with articular cortical remodeling, articular sclerosis, marginal osteophytes, and subchondral cystic changes. Lateral Compartment: There is marked articular remodeling along the medial margins of the lateral compartment with blunting of the lateral tibial spine. Moderate nonuniform articular cartilage loss is present at the medial aspect of the lateral tibial plateau. There is more mild chondral thinning at the lateral femoral condyle. Small marginal osteophytes. Mild to moderate osteoarthritis in the proximal tibiofibular joint. JOINT FLUID AND BURSAE: Small joint effusion. Small amount of articular debris is present in the popliteus tendon sheath. 2 osseous loose bodies in the anterior aspect of the joint deep to Hoffa's fat pad measure 2 and 1.5 cm in greatest diameter. Surrounding scar tissue and edema signal are present in Hoffa's fat. There is a prominent focus of underlying subcortical cystic change at the anterior margin of the tibial plateau adjacent to this, occurring near the tibial tunnel. 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 Severe medial compartment osteoarthritis. Chronic, near-complete absence of the medial meniscus, most consistent with prior partial meniscectomy. Posterior root avulsion of the lateral meniscus with a horizontal tear of the anterior horn. [id number] patellofemoral and lateral compartment osteoarthritis. Small joint effusion with multiple intra-articular loose bodies.
== END 2022-12-17 18:29 | disposition home or self-care (01) ==
LOC: HO.MRI 18:28
PROVIDERS: Visit Provider Physician Assistant
DX: M17.12 Unilateral primary osteoarthritis, left knee (principal)
CPT/HCPCS: 73721

== ENCOUNTER → 2023-01-17 10:20 | Outpatient (BNVA) | payer BC, SELFPAY | PROVIDERS: PCP Internal Medicine; Visit Provider Orthopaedic Surgery | DX: Z13.89 Encounter for screening for other disorder (principal) ==

== ENCOUNTER 2023-02-08 08:39 | Outpatient (REF) | payer BC, SELFPAY ==
[2023-02-08 08:55] LABS: MANUAL DIFF FLAG NO
[2023-02-08 09:18] LABS: Basophils Absolute Auto 0.1 X10*3/uL (0.0-0.2); Basophils Percent Auto 0.7 % (0-2); Eosinophils Absolute Auto 0.3 X10*3/uL (0.0-0.4); Eosinophils Percent Auto 3.8 % (0-4); Hematocrit 47.1 % (42.0-52.0); Hemoglobin 15.7 g/dl (14.0-18.0); Imm Gran Abs Auto 0.02 X10*3/uL (0.00-0.03); Imm Gran Pct Auto 0.2 % (0.0-0.4); Lymphocytes Absolute Auto 1.9 X10*3/uL (1.2-4.9); Mean Corpuscular HGB Conc 33.3 g/dl (31.0-36.0); Mean Corpuscular Hemoglobin 29.6 pg (27.0-33.0); Mean Corpuscular Volume 88.9 fL (80.0-98.0); Mean Platelet Volume 10.1 fL (9.4-12.4); Monocytes Absolute Auto 0.8 X10*3/uL (0.1-1.2); Monocytes Percent Auto 9.8 % (2-11); Neutrophils Absolute Auto 5.1 x10*3/uL (2.0-8.3); Neutrophils Percent Auto 62.5 % (45-73); Platelet Count 245 X10*3/uL (160-400); Red Cell Distribution Width 13.2 % (11.0-16.0); White Blood Count 8.2 X10*3/uL (4.8-10.8)
[2023-02-08 10:05] LABS: Alanine Aminotransferase 29 U/L (0-40); Albumin Level 4.3 g/dL (3.5-5.0); Alkaline Phosphatase 76 U/L (39-117); Anion Gap 11 (12-20); Aspartate Amino Transferase 21 U/L (5-37); Bilirubin Total 1.1 mg/dL (0.0-1.0); Blood Urea Nitrogen 15 mg/dL (9-16); Calcium 9.6 mg/dL (8.4-10.2); Carbon Dioxide 29 mmol/L (22-29); Chloride 106 mmol/L (96-108); Cholesterol 195 mg/dL; Estimated Glomerular Filt Rate > 60; Glucose Fasting 109 mg/dL (60-99); HDL Cholesterol 44 mg/dL; LDL Cholesterol Calculated 129 mg/dl; Potassium 5.1 mmol/L (3.3-5.1); Sodium 141 mmol/L (135-145); Triglycerides 111 mg/dL
[2023-02-08 10:22] LABS: Prostate Specific Antigen Scr 2.56 ng/mL (<0.05-4.0)
== END 2023-02-08 08:40 | disposition home or self-care (01) ==
LOC: HO.LAB 08:39
PROVIDERS: PCP Internal Medicine; Visit Provider Internal Medicine
DX: Z00.00 Encounter for general adult medical examination without abnormal findings (principal); Z12.5 Encounter for screening for malignant neoplasm of prostate; E78.5 Hyperlipidemia, unspecified; D64.9 Anemia, unspecified; N28.9 Disorder of kidney and ureter, unspecified
CPT/HCPCS: 36415; 80053; 80061; 84153; 85025

== ENCOUNTER 2023-04-15 11:24 | Emergency (ER) | payer BC, SELFPAY ==
--- NOTE | ~2023-04-15 | XR_ITS ---
EXAMINATION: XR CHEST CLINICAL INFORMATION: Cough with green phlegm COMPARISON: Chest 05/24/2021 TECHNIQUE: 2 views of the chest were obtained. FINDINGS: No significant abnormality is noted involving the heart, lungs, mediastinum, bony thorax or soft tissues. XR/XR chest 2V IMPRESSION: No acute disease.
[2023-04-15 11:41] VITALS: BP 172/106; PULSE 60; RESP 20; TEMP 36.7; O2SAT 98; BMI 29.2
--- NOTE | 2023-04-15 11:45 | ED.SOB ---
HPI - SOB/Dyspnea General Chief Complaint: Upper Respiratory Symptoms Stated Complaint: Chest Discomfort Cough Diff Breathing Time Seen by Provider: 04/15/23 11:41 Source: patient Mode of arrival: ambulatory Limitations: no limitations History of Present Illness HPI Narrative: Cough, congestion, chest tightness worse since the smoke in the area, yellow green discharge from nares. MD elicited complaint: shortness of breath, cough and chest pain Onset (ago): week(s) Associated symptoms: chest pain Related Data Home Medications Medication Instructions Recorded Confirmed multivitamin [Daily Multivitamin] PO 01/17/23 01/23/23 Previous Rx's Medication Instructions Recorded azithromycin 250 mg tablet See Rx Instructions PO .COMPLEX #6 04/15/23 (Zithromax) tabs fluticasone propionate 50 2 spray intranasal DAILY #16 grams 04/15/23 mcg/actuation nasal spray,suspension (Flonase Allergy Relief) Allergies Allergy/AdvReac Type Severity Reaction Status Date / Time No Known Allergies Allergy Verified 04/15/23 11:47 Review of Systems Review of Systems: Yes all other systems are reviewed and are negative Respiratory: Comments: Cough and shortness of breath, chest tightness Neurologic: Denies Sensory deficit (Neuro) [facility] Past Medical History Surgical History History of ankle surgery History of carpal tunnel release History of knee surgery Family History Family History Father Bone cancer Mother Alzheimer's dementia Brother In good health Brother In good health Sister In good health Sister In good health Sister In good health Sister In good health Social History Social History Housing: House Alcohol intake: never Tobacco use type: Cigarette Smoked in Last 30 Days: No e-Cigarette/Vaping Use: Never Used Second Hand Smoke Exposure: No Use of substances other than those prescribed or required for medical reasons: No Advance Directives: No Advance Directives Information Provided: No service: No Current occupational status: employed Cognitive needs: No Hearing needs: No Vision needs: No Physical Exam Vital Signs: Vital Signs: Last Vital Signs Temp 98.1 F 04/15/23 11:41 Pulse 60 04/15/23 11:41 Resp 20 04/15/23 11:41 BP 172/106 H 04/15/23 11:41 Pulse Ox 98 04/15/23 12:33 O2 Del Method Room Air 04/15/23 12:33 BMI result Body Mass Index 29.2 Const: General: healthy appearing Nutritional Appearance: average body habitus Orientation/consciousness: oriented to person and patient oriented x3 Limitations: no limitations HEENT: Head: Yes normal to inspection Ears: external ears normal General nose exam: Normal external nose present Mouth: Normal oral and palatal mucosa present and oropharynx normal Throat: Yes posterior oropharynx normal Eyes: General: appearance normal, both eyes and all related structures Neck: Other: supple Neck: Yes normal visual inspection Chest: Chest palpation & inspection: normal inspection of the chest Resp: Auscultation: clear to auscultation bilaterally Cardio: Jugular venous distension: no JVD Rate: regular rate Rhythm: regular rhythm Heart sounds: S1 normal heart sound present and S2 normal heart sound present GI: Inspection: Yes normal to inspection Palpation (GI): Soft to palpation, nontender and No hepatosplenomegaly present Auscultation: normal bowel sounds : General: Yes no CVA tenderness Back/Spine/Pelvis: Back: no CVA tenderness Skin: General skin exam: no rashes or lesions noted Neuro: General: oriented to person and patient oriented x3 Cranial nerves: Yes CN's II-XII intact bilaterally Motor exam (neuro): 5/5 motor strength present throughout Sensory Exam: No Sensory deficit (Neuro) Extrem: General: Yes normal to inspection Psych: Appearance: grossly normal Course Reevaluation(s) Reevaluation #1: EKG, chest xray, troponin all normal. Patient with laryngitis, coughing up green will place on zpack and place on nasonex Time: 14:39 Medical Decision Making Differential Diagnosis Differential Diagnoses: The differential diagnosis associated with the presentation includes (chest pain, cardiac ischemia, pneumonia, sinusitis, laryngitis bronchitis) Admission/Observation Consideration of admission/observation: Escalation of care including admission/observation considered (in a 58 yo male who presents hypertensive with chest pain and shortness of breath admission was considered) Lab Data MDM Lab Attestation statement: I reviewed the patient's lab results. 04/15/23 12:07 04/15/23 12:07 Labs: Lab Results 04/15/23 04/15/23 04/15/23 Range/Units 12:07 12:07 12:07 WBC 9.6 (4.8-10.8) X10*3/uL RBC 5.41 (4.60-5.80) X10*6/uL Hgb 16.3 (14.0-18.0) g/dl Hct 47.9 (42.0-52.0) % MCV 88.5 (80.0-98.0) fL MCH 30.1 (27.0-33.0) pg MCHC 34.0 (31.0-36.0) g/dl RDW 12.6 (11.0-16.0) % Plt Count 250 (160-400) X10*3/uL MPV 10.1 (9.4-12.4) fL Immature Gran % (Auto) 0.2 (0.0-0.4) % Neut % (Auto) 68.2 (45-73) % Lymph % (Auto) 19.1 L (20-40) % [place] % (Auto) 8.7 (2-11) % Eos % (Auto) 3.1 (0-4) % Baso % (Auto) 0.7 (0-2) % Lymph # (Auto) 1.8 (1.2-4.9) X10*3/uL [place] # (Auto) 0.8 (0.1-1.2) X10*3/uL Eos # (Auto) 0.3 (0.0-0.4) X10*3/uL Baso # (Auto) 0.1 (0.0-0.2) X10*3/uL Abs Immat Gran (auto) 0.02 (0.00-0.03) X10*3/uL Absolute Neuts (auto) 6.5 (2.0-8.3) x10*3/uL Absolute Nucleated RBC 0.000 (0.0-0.012) X10*3/uL Nucleated RBC % (auto) 0.0 (0.0-0.2) /100WBC Sodium 142 (135-145) mmol/L Potassium 4.4 (3.3-5.1) mmol/L Chloride 106 (96-108) mmol/L Carbon Dioxide 28 (22-29) mmol/L Anion Gap 12 (12-20) BUN 16 (9-16) mg/dL Creatinine 0.89 (0.5-1.4) mg/dL Estim Creat Clear Calc 94.7 Estimated GFR > 60 Random Glucose 101 (60-115) mg/dL Calcium 9.9 (8.4-10.2) mg/dL Troponin I High Sens < 2.7 (<3.5-35.0) ng/L Independent Interpretation I performed an independent interpretation of an: EKG (sinus 56, no st or twave changes) and Plain X-Ray (no infiltrate) Discharge Plan Discharge Clinical Impression: Cough, Bronchitis, Laryngitis Patient Disposition: Home, Self-Care Instructions: Laryngitis (ED), Acute Bronchitis (ED) Prescriptions: New fluticasone propionate [Flonase Allergy Relief] 50 mcg/actuation spray,suspension 2 spray intranasal DAILY Qty: 16 0RF Rx Instructions: administer into each nostril azithromycin [Zithromax] 250 mg tablet See Rx Instructions .ROUTE .COMPLEX Qty: 6 0RF Rx Instructions: For 250 mg dose pack: take 500 mg today (day 1), then 250 mg for 4 days (days 2-5) No Action multivitamin [Daily Multivitamin] PO Referrals: Santos Salcedo MD [Primary Care Provider] - 1 week Stand Alone Forms: Work/School Release
--- NOTE | 2023-04-15 11:47 | ECG_ITS ---
Test Reason : CHEST PAIN Blood Pressure : / mmHG Vent. Rate : 056 BPM Atrial Rate : 056 BPM P-R Int : 170 ms QRS Dur : 098 ms QT Int : 396 ms P-R-T Axes : 039 -28 -02 degrees QTc Int : 382 ms Sinus bradycardia Otherwise normal ECG When compared with ECG of 31-MAY-2021 11:21, No significant change was found Referred By: Blake Muñoz Electronically Signed By:DELMI RIVERS MD
[2023-04-15 12:11] LABS: MANUAL DIFF FLAG NO
[2023-04-15 12:14] LABS: Basophils Absolute Auto 0.1 X10*3/uL (0.0-0.2); Basophils Percent Auto 0.7 % (0-2); Eosinophils Absolute Auto 0.3 X10*3/uL (0.0-0.4); Eosinophils Percent Auto 3.1 % (0-4); Hematocrit 47.9 % (42.0-52.0); Hemoglobin 16.3 g/dl (14.0-18.0); Imm Gran Abs Auto 0.02 X10*3/uL (0.00-0.03); Imm Gran Pct Auto 0.2 % (0.0-0.4); Lymphocytes Absolute Auto 1.8 X10*3/uL (1.2-4.9); Lymphocytes Percent Auto 19.1 % (20-40); Mean Corpuscular Hemoglobin 30.1 pg (27.0-33.0); Mean Corpuscular Volume 88.5 fL (80.0-98.0); Mean Platelet Volume 10.1 fL (9.4-12.4); Monocytes Absolute Auto 0.8 X10*3/uL (0.1-1.2); Monocytes Percent Auto 8.7 % (2-11); Neutrophils Absolute Auto 6.5 x10*3/uL (2.0-8.3); Neutrophils Percent Auto 68.2 % (45-73); Platelet Count 250 X10*3/uL (160-400); Red Blood Count 5.41 X10*6/uL (4.60-5.80); Red Cell Distribution Width 12.6 % (11.0-16.0); White Blood Count 9.6 X10*3/uL (4.8-10.8)
[2023-04-15 12:25] LABS: Anion Gap 12 (12-20); Blood Urea Nitrogen 16 mg/dL (9-16); Calcium 9.9 mg/dL (8.4-10.2); Carbon Dioxide 28 mmol/L (22-29); Chloride 106 mmol/L (96-108); Creatinine Clr Calc Pharmacy 94.7; Estimated Glomerular Filt Rate > 60; Glucose Random 101 mg/dL (60-115); Potassium 4.4 mmol/L (3.3-5.1); Sodium 142 mmol/L (135-145)
[2023-04-15 12:33] VITALS: O2SAT 98
[2023-04-15 12:36] LABS: Troponin-I High Sensitivity < 2.7 ng/L (<3.5-35.0)
== END 2023-04-15 15:04 | disposition home or self-care (01) ==
PROVIDERS: Emergency Provider Emergency Medicine; PCP Internal Medicine
DX: J40 Bronchitis, not specified as acute or chronic (principal); R07.89 Other chest pain; R05.9 Cough, unspecified; Z79.899 Other long term (current) drug therapy
CPT/HCPCS: 36415; 71046; 80048; 84484; 85025; 93005; 99283; 99284

== ENCOUNTER 2024-01-27 14:25 | Outpatient (AMB) | payer BC, SELFPAY ==
[2024-01-27 14:26] VITALS: BP 112/64; PULSE 86; O2SAT 98; BMI 27.1
--- NOTE | 2024-01-27 14:26 | A.OFFPC_ITS ---
Vital Signs 01/27/24 14:26 Height 5 ft 8 in Weight 178 lb BMI 27.1 BP 112/64 Blood Pressure Location Lt brachial Position Sitting Pulse 86 Pulse Source Pulse Oximeter Pulse Oximetry (%) 98 Oxygen Delivery Method Room Air Intake Visit Reasons: Annual Exam Poster Required: No Rendering Equipment Tender: Not Required per policy Accompanied by: Self / Same As Patient Allergies No Known Allergies Allergy (Verified 01/27/24 14:26) Medication List - Last Reconciled 01/28/24 by Santos Salcedo MD fluticasone propionate 50 mcg/actuation (Flonase Allergy Relief) 2 sprays intranasal DAILY multivitamin (Daily Multivitamin) PO Tobacco use date assessed: 01/27/24 Dental Screening Dental Screen Date: 01/27/24 Did you have a dental visit in the last 12 months?: Yes Did you have a dental problem in the last 6 months where you did not have access to dental care?: No Was dental information given to patient?: Patient has dentist HPI Annual Exam HPI Details healthy [facility] Surgical History History of ankle surgery History of carpal tunnel release History of knee surgery Family History Father Bone cancer Mother Alzheimer's dementia Brother In good health Brother In good health Sister In good health Sister In good health Sister In good health Sister In good health Social History Housing: House Alcohol intake: never Patient Tobacco Use Status: Never used Tobacco Tobacco use type: Cigarette e-Cigarette/Vaping Use: Never Used Second Hand Smoke Exposure: No service: No Current occupational status: employed Cognitive needs: No Hearing needs: No Vision needs: Yes (glasses ) Questionnaire PHQ-9 Over the last 2 weeks, how often have you been bothered by any of the following problems? 1. Little interest or pleasure in doing things: not at all 2. Feeling down, depressed, or hopeless: not at all 3. Trouble falling or staying asleep, or sleeping too much: not at all 4. Feeling tired or having little energy: not at all 5. Poor appetite or overeating: not at all 6. Feeling bad about yourself - or that you are a failure or have let yourself or your family down: not at all 7. Trouble concentrating on things, such as reading the newspaper or watching television: not at all 8. Moving or speaking so slowly that other people could have noticed. Or the opposite - being so fidgety or restless that you have been moving around a lot more than usual: not at all 9. Thoughts that you would be better off or of hurting yourself in some way: not at all Total score: 0 Depression Screening Interpretation: Negative Depression Screening Done: Yes 28451 - PHQ-9 Billing: Yes Source: Developed by Drs. Magno Sanchez, Elba Leon, Markell Smith and colleagues, with an educational joel from [employer]. Thrive Questionnaire Date Thrive assessed: 01/27/24 I am a: Patient What is your living situation today?: I have a steady place to live Within the past 12 months, did the food you bought not last and you didn't have the money to get more?: Never true Within the past 12 months, did you worry whether your food would run out before you got money to buy more?: Never true Do you have trouble paying for medicines?: No Do you have trouble getting transportation to medical appointments?: No Do you have trouble paying your heating and electricity bill?: No Do you have trouble taking care of your child, family member or friend?: No Do you have trouble with day-to-day activities such as bathing, preparing meals, shopping, managing finances, etc.?: No Are you currently unemployed and looking for a job?: No Are you interested in more education?: No Please select the resources that you would like help with: None THRIVE Score: 0 AUDIT C Alcohol Use Questionnaire (AUDIT-C) 1. How often do you have a drink containing alcohol?: Monthly or less 2. How many drinks containing alcohol do you have on a typical day when you are drinking?: 1 or 2 3. How often do you have six or more drinks on one occasion?: Never Total Score: 1 Score Reviewed/Action Taken: Yes OFE-7 AMB Questionnaire OFE-7 Date OFE - 7 assessed: 01/27/24 Feeling nervous, anxious, or on edge: 0 = Not at all Not being able to stop or control worryin = Not at all Worrying too much about different things: 0 = Not at all Trouble relaxin = Not at all Being so restless that it is hard to sit still: 0 = Not at all Becoming easily annoyed or irritable: 0 = Not at all Feeling afraid as if something awful might happen: 0 = Not at all Total OFE-7 score (0-4 normal; 5-9 mild; 10-14 moderate; 15-21 severe): 0 Source: Developed by Drs. Magno Sanchez, Elba Leon, Markell Smith and colleagues, with an educational joel from [employer]. Review of Systems Const Denies chills, Denies fatigue, Denies headache(s) and Denies weight loss Eyes Denies change in vision, Denies diplopia and Denies eye pain ENT Denies vertigo, Denies dizziness, Denies headache(s) and Denies nasal discharge Card Denies chest pain, Denies rapid heart rate and Denies dyspnea on exertion Resp Denies chest congestion, Denies cough, Denies pain with cough and Denies dyspnea on exertion GI Denies abdominal pain, Denies hematochezia and Denies change in bowel habits Musc Denies myalgias, Denies arthralgias and Denies joint swelling Skin/Breast Denies lesions and Denies unusual bruising Neuro Denies vertigo, Denies dizziness, Denies headache(s) and Denies focal weakness Endo Denies fatigue Physical exam (Primary Care) Vital Signs: Last Vital Signs Pulse 86 01/27/24 14:26 BP 112/64 01/27/24 14:26 Pulse Ox 98 01/27/24 14:26 Oxygen Delivery Method Room Air 01/27/24 14:26 BMI result Body Mass Index 27.1 Tobacco/Smoking Status: Tobacco use Status Tobacco use date assessed 01/27/24 01/27/24 14:32 Patient Tobacco Use Status Former Tobacco user 01/23/23 13:48 Tobacco use type Cigarette 01/27/24 14:32 e-Cigarette/Vaping Use Never Used 01/27/24 14:32 PHQ-9: PHQ-9 Score PHQ-9: Total score 0 01/27/24 14:32 Depression Screening Interpretation: Negative Thrive Assessment: Date of Thrive Assessment Date Thrive assessed 01/27/24 01/27/24 14:32 Const General: cooperative, healthy appearing and no acute distress Orientation/consciousness: oriented to person, oriented to place and oriented to time HENMT Head: Yes normal to inspection, Yes normocephalic and Yes atraumatic Mouth: Normal oral and palatal mucosa present and tongue normal Throat: Yes posterior oropharynx normal and Yes uvula midline Eyes General: appearance normal, both eyes and all related structures Neck Neck: Yes normal visual inspection, Yes full ROM and Yes no lymphadenopathy Thyroid: Thyroid normal Carotids: normal carotid upstroke Chest Chest palpation & inspection: normal inspection of the chest Resp Effort & Inspection: normal respiratory effort and able to speak in complete sentences Auscultation: clear to auscultation bilaterally Cardio Jugular venous distension: no JVD Palpation: normal PMI Rate: regular rate Rhythm: regular rhythm Heart sounds: S1 normal heart sound present and S2 normal heart sound present GI Inspection: Yes normal to inspection Palpation (GI): Soft to palpation and No hepatosplenomegaly present Auscultation: normal bowel sounds General: Yes no CVA tenderness Back/Spine/Pelvis Back: no CVA tenderness Skin General skin exam: no rashes or lesions noted Neuro General: oriented to person, oriented to place and oriented to time Extrem General: Yes normal to inspection and Yes full ROM Assessment and Plan Assessment & Plan (1) Physical exam: Code(s): Z00.00 - Encounter for general adult medical examination without abnormal findings Plan: stable; do labs Orders: Orders Prostate Specific Antigen Scr Today Z00.00 - Encounter for general adult medical examination without abnormal findings Comprehensive [place]. Panel Fast Today N28.9 - Disorder of kidney and ureter, unspecified Complete Blood Count Auto Diff Today D64.9 - Anemia, unspecified Lipid Panel Today E78.5 - Hyperlipidemia, unspecified Coding Level of Care Code Est Pt Prev Care 40-64y(72004) Diagnoses Physical exam Z00.00
== END 2024-01-27 14:44 | disposition home or self-care (01) ==
PROVIDERS: Visit Provider Internal Medicine
DX: Z00.00 Encounter for general adult medical examination without abnormal findings (principal)
CPT/HCPCS: 99396

== ENCOUNTER 2024-08-20 13:20 | Outpatient (AMB) | payer BC, SELFPAY ==
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
[2024-08-20 13:24] VITALS: BP 110/60; PULSE 70; O2SAT 96; BMI 25.0
== END 2024-08-20 13:49 | disposition home or self-care (01) ==
PROVIDERS: PCP Internal Medicine; Visit Provider Internal Medicine
DX: E27.8 Other specified disorders of adrenal gland (principal)

== ENCOUNTER → 2024-08-20 13:20 | Outpatient (BNVA) | payer BC, SELFPAY | PROVIDERS: PCP Internal Medicine; Visit Provider Internal Medicine ==

== ENCOUNTER 2024-08-30 08:22 | Outpatient (AMB) | payer BC, SELFPAY ==
[2024-08-30 08:24] VITALS: BP 146/92; PULSE 84; BMI 25.7
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
== END 2024-08-30 09:07 | disposition home or self-care (01) ==
PROVIDERS: PCP Internal Medicine; Visit Provider Student in an Organized Health Care Education/Training Program
DX: E27.8 Other specified disorders of adrenal gland (principal); E01.0 Iodine-deficiency related diffuse (endemic) goiter
CPT/HCPCS: 99204

== ENCOUNTER → 2024-08-30 08:22 | Outpatient (BNVA) | payer BC, SELFPAY | PROVIDERS: PCP Internal Medicine; Visit Provider Student in an Organized Health Care Education/Training Program ==

== ENCOUNTER 2024-08-30 09:16 | Outpatient (REF) | payer BC, SELFPAY ==
[2024-08-30 10:58] LABS: Anion Gap 10 (12-20); Blood Urea Nitrogen 11 mg/dL (9-16); Calcium 9.6 mg/dL (8.4-10.2); Carbon Dioxide 30 mmol/L (22-29); Chloride 106 mmol/L (96-108); Estimated Glomerular Filt Rate > 60; Glucose Random 110 mg/dL (60-115); Potassium 4.5 mmol/L (3.3-5.1); Sodium 141 mmol/L (135-145)
[2024-09-01 04:49] LABS: DHEA Sulfate 242 mcg/dL (20-217)
[2024-09-03 16:43] LABS: Metanephrine, Free 47 pg/mL (<=57); Normetanephrines, Free 228 pg/mL (<=148); Total Metanephrine, Free 275 pg/mL (<=205)
[2024-09-04 15:49] LABS: Adrenocorticotropic Hormone 23 pg/mL (6-50)
[2024-09-06 12:08] LABS: Renin 0.53 ng/mL/h (0.25-5.82)
== END 2024-08-30 09:17 | disposition home or self-care (01) ==
LOC: HO.LAB 09:16
PROVIDERS: Visit Provider Student in an Organized Health Care Education/Training Program
DX: E27.8 Other specified disorders of adrenal gland (principal)
CPT/HCPCS: 36415; 80048; 82024; 82088; 82533; 82627; 83835; 84244

== ENCOUNTER 2024-09-01 14:23 | Outpatient (REF) | payer BC, SELFPAY | END 2024-09-01 14:24 | disposition home or self-care (01) | LOC: HO.US 14:23 | PROVIDERS: PCP Internal Medicine; Visit Provider Student in an Organized Health Care Education/Training Program | DX: E01.0 Iodine-deficiency related diffuse (endemic) goiter (principal) | CPT/HCPCS: 76536 ==

== ENCOUNTER → 2024-09-01 14:27 | Outpatient (BNV) | payer BC, SELFPAY | PROVIDERS: PCP Internal Medicine; Visit Provider Radiology Diagnostic Radiology | DX: E01.0 Iodine-deficiency related diffuse (endemic) goiter (principal) | CPT/HCPCS: 76536 ==

== ENCOUNTER 2024-09-02 07:36 | Outpatient (REF) | payer BC, SELFPAY ==
[2024-09-07 22:48] LABS: Adrenocorticotropic Hormone <5 pg/mL (6-50)
[2024-09-12 10:44] LABS: Dexamethasone 673 ng/dL
== END 2024-09-02 07:37 | disposition home or self-care (01) ==
LOC: HO.LAB 07:36
PROVIDERS: PCP Internal Medicine; Visit Provider Student in an Organized Health Care Education/Training Program
DX: E27.8 Other specified disorders of adrenal gland (principal)
CPT/HCPCS: 36415; 80299; 82024; 82533

== ENCOUNTER 2024-09-27 08:02 | Outpatient (AMB) | payer BC, SELFPAY ==
[2024-09-27 08:06] VITALS: BP 148/98; PULSE 115; BMI 26.0
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
[2024-09-27 08:45] VITALS: PULSE 90
== END 2024-09-27 08:37 | disposition home or self-care (01) ==
PROVIDERS: PCP Internal Medicine; Visit Provider Student in an Organized Health Care Education/Training Program
DX: E27.8 Other specified disorders of adrenal gland (principal); E04.2 Nontoxic multinodular goiter
CPT/HCPCS: 99214

== ENCOUNTER → 2024-09-27 08:02 | Outpatient (BNVA) | payer BC, SELFPAY | PROVIDERS: PCP Internal Medicine; Visit Provider Student in an Organized Health Care Education/Training Program ==

== ENCOUNTER 2024-10-05 11:58 | Outpatient (REF) | payer BC, SELFPAY ==
[2024-10-05 12:40] LABS: Total Volume 24 Hour Urine 1875 mL
[2024-10-05 12:54] LABS: Creatinine, 24Hr Urine 1.3 G/Day (1.0-2.0); Creatinine, mg/dL 67.55
--- OUTSIDE RECORDS SUMMARY | 2024-10-12 13:38 | XMS_ITS ---
Author Name [facility] Organization Unknown Results Test Name/Text Value Interpretation Date Range Source Phosphate SerPl-mCnc 3.8mg/dL Normal [id number] 2.7 - 4.5 [facility] Result Normal [id number] - [facility] 25(OH)D3 SerPl-mCnc 28ng/mL Below low normal [id number] 30 - 100 [facility] Albumin SerPl-mCnc 4g/dL Normal [id number] 3.4 - 4. 8 [facility] Prealb SerPl-mCnc 25mg/dL Normal [id number] 20 - 40 [facility] Opiates Ur Ql Scn>300 ng/mL Normal [id number] - [facility] Benzodiaz Ur Ql Scn>200 ng/mL Normal [id number] - [facility] Cannabinoids Ur Ql Scn>50 ng/mL Abnormal [id number] - [facility] Amphetamines Ur Ql Normal [id number] - [facility] fentaNYL+Norfentanyl Ur Ql Scn Normal [id number] - [facility] BZE Ur Ql Normal [id number] - [facility] PCP Ur Ql Scn>25 ng/mL Normal [id number] - [facility] Ethanol SerPl-mCnc 11mg/dL Normal [id number] - 11 [facility] Phosphate SerPl-mCnc 1.5mg/dL Below low normal [id number] 2.7 - 4.5 [facility] Magnesium SerPl-mCnc 2.2mg/dL Normal [id number] 1.6 - 2.7 [facility] Amylase SerPl-cCnc 116U/L Above high normal [id number] 28 - 100 [facility] Lipase SerPl-cCnc 91U/L Above high normal [id number] 1 3 - 60 [facility] Globulin Ser Calc-mCnc 2.5g/dL Normal [id number] 1.5 - 3.9 [facility] ALT SerPl-cCnc 27U/L Normal [id number] 10 - 55 [facility] AST SerPl-cCnc 19U/L Normal [id number] 10 - 55 [facility] CCT GFR/BSA.pred SerPlBld WRM-CDV-VjEObn 86 Normal [id number] 59 - [facility] Albumin SerPl-mCnc 4.1g/dL Normal [id number] 3.4 - 4. 8 [facility] Albumin/Glob SerPl 1.6Ratio Normal [id number] 1 - 3 [facility] Creat SerPl-mCnc 1mg/dL Normal [id number] 0.5 - 1.3 [facility] Bilirub SerPl-mCnc 0.4mg/dL Normal [id number] 0.2 - 1 [facility] Anion Gap Bld-sCnc 10 Normal [id number] 7 - 17 [facility] Sodium SerPl-sCnc 141mmol/L Normal [id number] 136 - 145 [facility] Potassium SerPl-sCnc 3.4mmol/L Normal [id number] 3.4 - 5.3 [facility] Chloride SerPl-sCnc 102mmol/L Normal [id number] 98 - 10 7 [facility] Glucose SerPl-mCnc 133mg/dL Above high normal [id number] 65 - 99 [facility] Prot SerPl-mCnc 6.6g/dL Normal [id number] 6.3 - 8.3 [facility] BUN/Creat SerPl 14Ratio Normal [id number] 10 - 25 [facility] Calcium SerPl-mCnc 9.3mg/dL Normal [id number] 8.7 - 10 .5 [facility] CO2 SerPl-sCnc 29mmol/L Normal [id number] 22 - 33 [facility] CCT BUN SerPl-mCnc 14mg/dL Normal [id number] 8 - 21 [facility] CCT ALP SerPl-cCnc 69U/L Normal [id number] 45 - 128 [facility] CCT CK SerPl-cCnc 122U/L Normal [id number] 24 - [address] Lactate SerPl-sCnc 1.6mmol/L Normal [id number] 0.5 - 1. 9 [facility] aPTT PPP 29seconds Normal [id number] 25 - 36 [facility] INR PPP 0.9 Normal [id number] [facility] Prothrombin time 10.5seconds Normal [id number] 10 - 13. 5 [facility] Imm Granulocytes/leuk NFr Bld Auto 0.6% Normal [id number] [facility] Lymphocytes/leuk NFr Bld Auto 23% Normal [id number] [facility] PMV Bld Auto 10.5fL Normal [id number] 7.5 - 12.[address] Monocytes num Bld Auto 0.98Thou/uL Normal [id number] 0.2 - 1.5 [facility] Hct VFr Bld Auto 42.4% Normal [id number] 39 - 54 [facility] Neutrophils num Bld Auto 8Thou/uL Above high normal [id number] 2 - 7.5 [facility] Neutrophils/leuk NFr Bld Auto 65.3% Normal [id number] [facility] Basophils/leuk NFr Bld Auto 0.8% Normal [id number] [facility] Basophils num Bld Auto 0.1Thou/uL Normal [id number] 0 - 0.2 [facility] Monocytes/leuk NFr Bld Auto 8% Normal [id number] [facility] Eosinophil num Bld Auto 0.28Thou/uL Normal [id number] 0 - 0.7 [facility] MCH RBC Qn Auto 30pg Normal [id number] 27 - 31 [facility] Eosinophil/leuk NFr Bld Auto 2.3% Normal [id number] [facility] Imm Granulocytes num Bld Auto 0.07Thou/uL Normal [id number] 0 - 0.1 [facility] RDW RBC Auto-Rto 12.6% Normal [id number] 11.5 - 14. 5 [facility] Platelet num Bld Auto 266Thou/uL Normal [id number] 150 - 450 [facility] MCHC RBC Auto-mCnc 33g/dL Normal [id number] 30 - 36 [facility] MCV RBC Auto 91fL Normal [id number] 80 - 100 [facility] T WBC num Bld Auto 12.2Thou/uL Above high normal [id number] 4 - 11 [facility] RBC num Bld Auto 4.67Mil/uL Normal [id number] 4.5 - 6.2 [facility] Hgb Bld-mCnc 14g/dL Normal [id number] 13 - 17.7 [facility] T Lymphocytes num Bld Auto 2.81Thou/uL Normal [id number] 1.5 - 4.5 [facility] Ca-I SerPl-mCnc 1.14mmol/L Below low normal [id number] 1.1 7 - 1.33 [facility] Anticoagulant NO ANTI COAGULANT MEDS Normal [id number] [facility] Anticoagulant NO ANTI COAGULANT MEDS Normal [id number] [facility] POC Glucose 130mg/dL Above high normal [id number] 65 - 99 [facility] History of Medication Use Medication Directions Dispensed Refills Start Date End Date [facility] calcium citrate (CALCITRATE) 950 (200 Ca) MG tablet Take 1 tablet (950 mg total) by mouth 2 (two) times a day with meals. 07/02/2024 active senna-docusate (SENNA-S) 8.6-50 MG Take 1 tablet by mouth nightly. 07/02/2024 active oxyCODONE (ROXICODONE) 5 MG immediate release tablet Take 1 tablet (5 mg total) by mouth every 4 (four) hours as needed for severe pain. Max Daily Amount: 30 mg 07/02/2024 active cholecalciferol (CHOLECALCIFEROL) 25 MCG (1000 UT) tablet Take 5 tablets (5,000 Units total) by mouth daily. 07/02/2024 active rivaroxaban (XARELTO) 10 MG tablet Take 1 tablet (10 mg total) by mouth daily. 07/02/2024 active methocarbamol (ROBAXIN) 750 MG tablet Take 1 tablet (750 mg total) by mouth 4 (four) times a day. 07/02/2024 active calcium carbonate (TUMS) 500 MG chewable tablet Chew 2 tablets (1,000 mg total) 2 times daily (every 12 hours) as needed for indigestion or heartburn. 07/02/2024 active Problems Problem Status Onset Date Problem Type Date of Resoluti on Source Concussion active 2024-06-20 ProblemAct [facility] Fracture of right patella active 2024-06-20 ProblemAct [facility] Knee laceration, right, initial encounter active 2024-06-20 ProblemAct [facility] Closed displaced comminuted fracture of right patella with routine healing active EncounterDiagnosisAct [facility] Patella fracture active 2024-06-19 ProblemAct H [facility] Traumatic closed nondisplaced fracture of femoral condyle, right, initial encounter active 2024-06-20 ProblemAct [facility] Immunizations Vaccine Date Source Lot Number Status Tdap 06/19/2024 [facility] [id number] completed
[2024-10-14 09:44] LABS: Metanephrine, Free 24U 153 mcg/24 h (90-315); Normetanephrine, Free 24U 318 mcg/24 h (122-676); Total Metanephrine, Free 24U 471 mcg/24 h (224-832); Total Volume 24U 1875 mL
== END 2024-10-05 11:59 | disposition home or self-care (01) ==
LOC: HO.LNP 11:58
PROVIDERS: Visit Provider Student in an Organized Health Care Education/Training Program
DX: E27.8 Other specified disorders of adrenal gland (principal)
CPT/HCPCS: 82570; 83835

== ENCOUNTER 2024-10-18 08:06 | Outpatient (AMB) | payer BC, SELFPAY ==
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
[2024-10-18 08:15] VITALS: BP 138/90; PULSE 63; BMI 24.2
== END 2024-10-18 08:51 | disposition home or self-care (01) ==
PROVIDERS: PCP Internal Medicine; Visit Provider Student in an Organized Health Care Education/Training Program
DX: E27.8 Other specified disorders of adrenal gland (principal); E04.2 Nontoxic multinodular goiter
CPT/HCPCS: 99214

== ENCOUNTER 2024-10-18 11:33 | Outpatient (REF) | payer BC, SELFPAY ==
[2024-10-18 14:26] LABS: Free T4 (Free Thyroxine) 0.89 ng/dL (0.71-1.85); Thyroid Stimulating Hormone 0.34 uIU/mL (0.32-4.0)
== END 2024-10-18 11:34 | disposition home or self-care (01) ==
LOC: HO.10HDL 11:33
PROVIDERS: Visit Provider Student in an Organized Health Care Education/Training Program
DX: E04.2 Nontoxic multinodular goiter (principal)
CPT/HCPCS: 36415; 84439; 84443

== ENCOUNTER 2024-10-20 08:58 | Outpatient (REF) | payer BC, SELFPAY ==
--- NOTE | 2024-10-20 09:48 | PM.PROC ---
Brief Operative Note Date of procedure: 10/20/24 Pre-op diagnosis: isthmus 2.6 cm and left lower lobe 2.5 cm thyroid nodules FNA biopsy Procedure: THYROID FINE NEEDLE ASPIRATION PROCEDURE NOTE ? PROCEDURE PERFORMED: Ultrasound-guided FNA of thyroid nodule ? OPERATORS: Dr. Brittany English ? INDICATION: isthmus 2.6 cm and left lower lobe 2.5 cm thyroid nodules ; FNA performed to assess for malignancy ? DESCRIPTION OF PROCEDURE: The indications for FNA (to assess for malignancy) were reviewed with the patient in detail. Potential complications (e.g., bleeding, infection, damage to local structures, absence of clear diagnosis after FNA) were reviewed. Alternatives to FNA including conservative observation or surgery were described. The patient understood and agreed to proceed. This was documented by the signing of the written informed consent form. A time-out was performed to confirm the patient's identity and the site of planned FNA. The nodule of interest was identified using ultrasound (14 MHz linear array probe). The site of FNA was then draped in the usual fashion and carefully cleaned and prepared using alcohol swabs. For the 2.6 cm isthmus nodule, The skin at the previously-identified site of needle insertion was iced and sprayed with numbing spray. Under ultrasound guidance, 4__ passes were performed using a 1.5-inch, 25-gauge needle, and sample was obtained via capillary action. The needle tip was clearly visualized to be within the nodule at the time of sampling for _4_ of 4__ passes. For the 2.5 cm left lower lobe nodule, The skin at the previously-identified site of needle insertion was iced and sprayed with numbing spray. Under ultrasound guidance, 4__ passes were performed using a 1.5-inch, 25-gauge needle, and sample was obtained via capillary action. The needle tip was clearly visualized to be within the nodule at the time of sampling for _3_ of 4__ passes The patient tolerated the procedure well. There were no immediate complications. A small adhesive bandage was applied, and the patient was advised to take acetaminophen (rather than NSAIDs) for any discomfort and to report any signs of inflammation/infection or marked swelling. IMPRESSION: Technically successful ultrasound-guided fine needle aspiration of isthmus 2.6 cm and left lower lobe 2.5 cm thyroid nodules . PLAN: The patient was advised that I will provide follow-up regarding the cytology result and any subsequent plans. Brittany English MD Endocrinology Attending Condition: stable Disposition: same day
== END 2024-10-20 08:59 | disposition home or self-care (01) ==
LOC: HO.US 08:58
PROVIDERS: PCP Internal Medicine; Visit Provider Student in an Organized Health Care Education/Training Program
DX: E04.2 Nontoxic multinodular goiter (principal)
CPT/HCPCS: 10005; 10006; 88173; 88305

== ENCOUNTER → 2024-10-20 08:58 | Outpatient (BNV) | payer BC, SELFPAY | PROVIDERS: PCP Internal Medicine; Visit Provider Student in an Organized Health Care Education/Training Program | DX: E04.2 Nontoxic multinodular goiter (principal) | CPT/HCPCS: 10005; 10006 ==

== ENCOUNTER 2024-11-04 08:24 | Outpatient (AMB) | payer BC, SELFPAY ==
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
[2024-11-04 09:24] VITALS: BP 112/76; PULSE 70; BMI 26.8
== END 2024-11-04 09:45 | disposition home or self-care (01) ==
PROVIDERS: PCP Internal Medicine; Visit Provider Student in an Organized Health Care Education/Training Program
DX: E27.8 Other specified disorders of adrenal gland (principal); E04.2 Nontoxic multinodular goiter
CPT/HCPCS: 99214

== ENCOUNTER 2025-01-27 14:01 | Outpatient (AMB) | payer BC, SELFPAY ==
[2025-01-27 14:05] VITALS: BP 126/88; PULSE 79; TEMP 37; O2SAT 95; BMI 27.0
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
== END 2025-01-27 14:48 | disposition home or self-care (01) ==
LOC: HO.HMCH 14:02
DX: E27.8 Other specified disorders of adrenal gland (principal); E04.2 Nontoxic multinodular goiter; K40.90 Unilateral inguinal hernia, without obstruction or gangrene, not specified as recurrent; V89.2XXD Person injured in unspecified motor-vehicle accident, traffic, subsequent encounter

== ENCOUNTER → 2025-01-27 14:01 | Outpatient (BNVA) | payer BC, SELFPAY | DX: E27.8 Other specified disorders of adrenal gland (principal); E04.2 Nontoxic multinodular goiter; K40.90 Unilateral inguinal hernia, without obstruction or gangrene, not specified as recurrent | CPT/HCPCS: 96127 ==

== ENCOUNTER 2025-01-28 09:23 | Outpatient (REF) | payer BC, SELFPAY ==
[2025-01-28 09:38] LABS: MANUAL DIFF FLAG NO
[2025-01-28 09:56] LABS: Basophils Absolute Auto 0.1 X10*3/uL (0.0-0.2); Basophils Percent Auto 0.8 % (0-2); Eosinophils Absolute Auto 0.3 X10*3/uL (0.0-0.4); Eosinophils Percent Auto 3.8 % (0-4); Hematocrit 46.6 % (42.0-52.0); Hemoglobin 16.1 g/dl (14.0-18.0); Imm Gran Abs Auto 0.02 X10*3/uL (0.00-0.03); Imm Gran Pct Auto 0.2 % (0.0-0.4); Lymphocytes Absolute Auto 2.1 X10*3/uL (1.2-4.9); Lymphocytes Percent Auto 23.6 % (20-40); Mean Corpuscular HGB Conc 34.5 g/dl (31.0-36.0); Mean Corpuscular Hemoglobin 30.3 pg (27.0-33.0); Mean Corpuscular Volume 87.6 fL (80.0-98.0); Monocytes Absolute Auto 0.9 X10*3/uL (0.1-1.2); Monocytes Percent Auto 10.1 % (2-11); Neutrophils Absolute Auto 5.4 x10*3/uL (2.0-8.3); Neutrophils Percent Auto 61.5 % (45-73); Platelet Count 258 X10*3/uL (160-400); Red Blood Count 5.32 X10*6/uL (4.60-5.80); White Blood Count 8.7 X10*3/uL (4.8-10.8)
[2025-01-28 10:05] LABS: Estimated Average Glucose 114 mg/dL; Hemoglobin A1c % 5.6 % (<6.0)
[2025-01-28 11:08] LABS: Alanine Aminotransferase 37 U/L (0-40); Albumin Level 4.3 g/dL (3.5-5.0); Alkaline Phosphatase 76 U/L (39-117); Anion Gap 9 (12-20); Aspartate Amino Transferase 24 U/L (5-37); Bilirubin Total 0.7 mg/dL (0.0-1.0); Blood Urea Nitrogen 15 mg/dL (9-16); Calcium 9.6 mg/dL (8.4-10.2); Carbon Dioxide 29 mmol/L (22-29); Chloride 107 mmol/L (96-108); Cholesterol 206 mg/dL (<200); Estimated Glomerular Filt Rate > 60; Glucose Fasting 116 mg/dL (60-99); HDL Cholesterol 50 mg/dL (>40); LDL Cholesterol Calculated 139 mg/dL (<100); Potassium 4.3 mmol/L (3.3-5.1); Sodium 141 mmol/L (135-145); Total Protein 7.3 g/dL (6.5-8.0); Triglycerides 89 mg/dL (<150); Uric Acid 5.3 mg/dL (3.4-7.0)
[2025-01-28 11:33] LABS: TSH reflex Free T4 0.45 uIU/mL (0.32-4.0); Vitamin D 25-OH Total 34.3 ng/mL (>30)
[2025-01-28 13:21] LABS: Appearance Urine Clear; Color Urine Yellow; Glucose Urine UA Negative (Negative); Leukocyte Esterase Urine Small (1+) (Negative); Nitrite Urine Negative (Negative); UMIC TRIGGER UACC YES; Urine Blood Negative (Negative); Urine Ketones Negative (Negative); Urine Protein Negative (Neg-Trace)
[2025-01-28 13:30] LABS: Bacteria Urine None Seen (None Seen); Hyaline Casts Urine 0-2 /LPF (0-2); RBC Urine 0-2 /HPF (0-2); Squamous Epithelial Cell Urine 0-2 /HPF (0-2); UACC Culture Trigger YES
== END 2025-01-28 09:24 | disposition home or self-care (01) ==
LOC: HO.10HDL 09:23
DX: Z00.00 Encounter for general adult medical examination without abnormal findings (principal); E01.0 Iodine-deficiency related diffuse (endemic) goiter; Z13.1 Encounter for screening for diabetes mellitus; Z13.6 Encounter for screening for cardiovascular disorders
CPT/HCPCS: 36415; 80053; 80061; 81001; 82306; 83036; 84443; 84550; 85025; 87086

== ENCOUNTER 2025-02-17 14:25 | Outpatient (REF) | payer BC, SELFPAY ==
--- NOTE | ~2025-02-17 | US_ITS ---
EXAMINATION: US RIGHT INGUINAL REGION, LIMITED/FOLLOW UP CLINICAL INFORMATION: Unilateral inguinal hernia without obstruction, right-sided. COMPARISON: None available. TECHNIQUE: Real-time ultrasound of the right inguinal region using a linear transducer with grayscale and color Doppler technique. Exam in standing and supine position. FINDINGS: There is an irregular heterogeneous mixed echotexture approximately 3 cm soft tissue abnormality in the right inguinal region more visible in standing position. No gross increased flow on color Doppler interrogation. US/US pelvic limited IMPRESSION: Consider a right inguinal hernia likely reducible. Electronically signed by: Isidro Saul MD 02/18/2025 07:34 AM EDT
--- OUTSIDE RECORDS SUMMARY | 2025-02-17 17:29 | XMS_ITS | Patient Health Record ---
Author Organization [facility] Address [address] [place] [address] [place] [id number] Care Team Providers Care Seasoner Name Role Phone Oscar Vivas N.P. Primary Care Provider Tadeo Hernandez Jr Reason For Referral No Information Medications Medication SIG (Take, Route, Fr equency, Duration) Notes Start Date End Date Status Dicyclomine HCl 20 MG 1 TABLET FOUR TIME S A DAY BEFORE MEALS & AT BEDTIME ORALLY 30 DAY(S) Oral for 30 Act rani Immunizations Vaccine Route Administration Date Status Comme nts Influenza Unknown 11/05/2018 Refused Problems Problem Type SNOMED Code ICD Code Onset Dates Problem Status W/U Status Risk Notes Problem 392201251 Colon cancer screening (V76.51) Active confirmed Problem [id number] Epigastric pain (R10.13) Active confirmed Plan Of Treatment Future Test Test Name Order Date COLONOSCOPY 12/02/2014 UPPER GI ENDOSCOPY 11/05/2018 Next Appt Details Provider Name:Tadeo boyle Jr, 03/16/2025 10:00:00 AM, [address] [place] [address], [address], [place], [phone], Insurance Providers Payer Name Payer Address Payer Phone Subscriber Number Group Number Insured Name Patient Relationship to Insured Coverage Start Date Coverage End Date [facility] [address] [place], [place] [phone] [id number] CAMRYN STEPHENSON Self - patient is the insured Medical (General) History Medical History History ICD Code Denies ME,DM,CVA,Lung disease,renal dise ase Surgical History Surgery Date(Month/Year) knee surgery-right and left 1989,2002,,1991 ankle surgery-left
--- OUTSIDE RECORDS SUMMARY | 2025-02-17 17:29 | XMS_ITS | Encounter Summary ---
Author Organization [facility] Address [address] [place] [address] Care Team Providers Care Hr Analyst Name Role Phone Santos Salcedo MD Primary Care Provider [phone] Encounter Details Date Type Department Care Team (Late st Contact Info) Description 02/03/2025 Scanned Document [facility] [address] [phone] Colton Pulido MD [address] [place] [id number] Social History Tobacco Use Types Packs/Day Years Used Date Smoking Tobacco: Never Assessed [facility] Utilities Answer Date Recorded In the past 12 months has e electric, gas, oil, or water company threatened to shut off services in your home? No 06/20/2024 AUDIT-C Answer Date Recorded Q1: How often do you have a drink containing alc ohol? 2-3 times a week 06/20/2024 Q2: How many drinks containi ng alcohol do you have on a typical day when you are drinking? 1 or 2 06/20/2024 Q3: How often do you have si x or more drinks on one occasion? Never 06/20/2024 Overall Financial Resource Strain (CARDIA) Answe r Date Recorded How hard is it for you to pa y for the very basics like food, housing, medical care, and heating? Not hard at all 06/20/2024 Hunger Vital Sign Answer Date Recorded Within the past 12 months, y ou worried that your food would run out before you got the money to buy more. Never true 06/20/20 24 Within the past 12 months, t he food you bought just didn't last and you didn't have money to get more. Never true 06/20/2024 PRAPARE - Transportation Answer Date Re corded In the past 12 months, has l ack of transportation kept you from medical appointments or from getting medications? No 06/03 In the past 12 months, has l ack of transportation kept you from meetings, work, or from getting things needed for daily living? No 06/20/2024 Housing Stability Vital Sign Answer Horace e Recorded In the last 12 months, was t here a time when you were not able to pay the mortgage or rent on time? No 06/20/2024 In the last 12 months, how many places have you lived? 1 06/20/2024 In the last 12 months, was t here a time when you did not have a steady place to sleep or slept in a prison (including now)? No 06/20/2024 Sex and Gender Information Value Date Recorded Sex Assigned at Male 06/19/2024 7:00 PM EDT Legal Sex Male 5:55 PM EDT Gender Identity Male 06/19/2024 7:00 PM EDT Sexual Orientation Heterosexual (straight) 06/19 7:00 PM EDT documented as of this encounter Plan of Treatment Upcoming Encounters Date Type Department Care Team (Late st Contact Info) Description 03/03/2025 10:30 AM EDT [facility] [address] [phone] Colton Pulido MD [address] [place] [address] documented as of this encounter Goals Goal Patient Goal Type Associated Problems Recent Progress Patient-Stated? Author PT LTG 1 Physical Therapy On track( 025 9:02 AM EST) No Beth June PT Note: Patient will increase R knee flexion ROM to 120 to be able climb up and down 13 stairs with reciprocal pattern while using 1 handrail in 8 weeks.-met as of 10/29/24 Patient will increase R knee extension ROM to 0 to be able to ambulate with non-abnormal gait and be able to ambulate community distances within 8 weeks.- met as of 10/29/24 Patient will be able to walk for 30 minutes to be able to grocery shop and complete community shopping trips within 8 weeks.-partially met as of 10/29/24 Patient will be report pain equal to or less than 1/10 which is limiting during sleeping and performing daily ADLS within 4 weeks.-partially met 3/10 R knee pain Patient will increase knee R quad strength to 4+/5 to be able to perform sit to stand without using UE within 8 weeks. -met as of 10/29/24 Patient will be independent with right lower extremity home exercise program within 4 weeks.-met with written HEP 10/29/24 Patient will improve LEFS score by 20 points within 8 weeks-partially met at 52 score at 10/29/24 documented as of this encounter Visit Diagnoses Not on filedocumented in this encounter Care Teams Hr Analyst Relationship Specialty Start Date End Date Santos Salcedo MD [address] [place] [address] [address] [place] [address] PCP - General 06/21/24 documented as of this encounter
--- OUTSIDE RECORDS SUMMARY | 2025-02-17 17:29 | XMS_ITS | Clinical Summary ---
Author Organization [facility] Address [address] [place] [address] Care Team Providers Care College Specialist Name Role Phone Santos Salcedo MD Primary Care Provider [phone] Allergies No known active allergies Medications calcium carbonate (TUMS) 500 MG chewable tabletIndication s:Traumatic closed nondisplaced fracture of femoral condyle, right, initial encounter (HCC) Chew 2 tablets (1,000 mg total) 2 times daily (every 12 hours) as needed for indigestion or heartburn. 30 tablet 4 Active calcium citrate (CALCITRATE) 950 (200 Ca) MG tabletIndication s:Traumatic closed nondisplaced fracture of femoral condyle, right, initial encounter (HCC) Take 1 tablet (950 mg total) by mouth 2 (two) times a day with meals. 60 tablet 4 Active cholecalciferol (CHOLECALCIFEROL ) 25 MCG (1000 UT) tabletIndication s:Traumatic closed nondisplaced fracture of femoral condyle, right, initial encounter (HCC) Take 5 tablets (5,000 Units total) by mouth daily. 150 tablet 4 Active methocarbamol (ROBAXIN) 750 MG tabletIndication s:Traumatic closed nondisplaced fracture of femoral condyle, right, initial encounter (HCC) Take 1 tablet (750 mg total) by mouth 4 (four) times a day. 120 tablet 4 Active oxyCODONE (ROXICODONE) 5 MG immediate release tabletIndication s:Traumatic closed nondisplaced fracture of femoral condyle, right, initial encounter (HCC) Take 1 tablet (5 mg total) by mouth every 4 (four) hours as needed for severe pain. Max Daily Amount: 30 mg 30 tablet 4 Active senna-docusate (SENNA-S) 8.6-50 MGIndications:Tr aumatic closed nondisplaced fracture of femoral condyle, right, initial encounter ([facility]) Take 1 tablet by mouth nightly. 30 tablet 4 Active rivaroxaban (XARELTO) 10 MG tabletIndication s:Patella fracture Take 1 tablet (10 mg total) by mouth daily. 28 tablet 4 Active Active Problems Problem Noted Date Diagnosed Date Fracture of right patella 06/20/2024 Concussion 06/20/2024 Traumatic closed nondisplace d fracture of femoral condyle, right, initial encounter 06/20/2024 Patella fracture 06/19/2024 Resolved Problems Problem Noted Date Diagnosed Date Resolved Date Knee laceration, right, initial encounter 06/20/2024 09/29/2024 Encounters Date Type Department Care Team Description 02/03/2025 1:00 PM EDT Office Visit Orthopedic [address] [place] [address] Colton Pulido MD Type I or II open displaced comminuted fracture of right patella with routine healing, subsequent encounter (Primary Dx) 02/03/2025 Scanned Document [facility] [address] [place] [address] Colton Pulido MD 12/30/2024 1:00 PM EST Office Visit [facility] [address] [place] [address] Colton Pulido MD Type I or II open displaced comminuted fracture of right patella with routine healing, subsequent encounter (Primary Dx) from Last 3 Months Immunizations Immunization Administration Dates Next Due Tdap 06/19/2024 Social History Tobacco Use Types Packs/Day Years Used Date Smoking Tobacco: Never Assessed [facility] Utilities Answer Date Recorded In the past 12 months has Service Seeking, gas, oil, or water [employer] threatened to shut off services in your [...] place to sleep or slept in a halfway (including now)? No 06/20/2024 Sex and Gender Information Value Date Recorded Sex Assigned at Male 06/19/2024 7:00 PM EDT Legal Sex Male 5:55 PM EDT Gender Identity Male 06/19/2024 7:00 PM EDT Sexual Orientation Heterosexual (straight) 06/19 7:00 PM EDT Last Filed Vital Signs Vital Sign Reading Time Taken Comments Blood Pressure 159/93 06/21/2024 2:37 PM EDT Pulse 61 06/21/2024 2:37 PM EDT Temperature 37.6 ??C (99.7 ??F) 06/21/2024 2:37 PM ED T Respiratory Rate 18 06/21/2024 2:37 PM EDT Oxygen Saturation 94% 06/21/2024 2:37 PM EDT Inhaled Oxygen Concentration - - Weight 74.8 kg (165 lb) 06/20/2024 8:12 PM EDT Height 172.7 cm (5' 8 ) 06/20/2024 8:12 PM EDT Body Mass Index 25.09 06/20/2024 8:12 PM EDT Plan of Treatment Upcoming Encounters Date Type Department Care Team (Late st Contact Info) Description 03/03/2025 10:30 AM EDT [facility] [address] [phone] Colton Pulido MD [address] [place] [id number] Health Maintenance Due Date Last Done Comments Hepatitis C Virus Screening 1963 HIV Screening 1976 Colonoscopy 2008 Pneumococcal Vaccines 50+ (1 of 1 - PCV) 2013 Zoster (Shingles) Vaccine (1 of 2) 2013 Influenza Vaccine 06/03/2024 COVID-19 Vaccine ( - 2023-2 5 season) 2024 DTaP/Tdap/Td Vaccines (2 - T d or Tdap) 06/19/2034 06/19/2024 RSV Vaccine 60 years and old er and Patients (1 - 1-dose 75+ series) 2038 Hepatitis B Vaccines Aged Out No long er eligible based on patient's age to complete this topic Goals Goal Patient Goal Type Associated Problems Recent Progress Patient-Stated? Author PT LTG 1 Physical Therapy On track( 025 9:02 AM EST) No Beth June, PT Note: Patient will increase R knee [...] weeks-partially met at 52 score at 10/29/24 Insurance [facility] [place] [id number] [facility] - PPO Advance Directives * Full Code (Latest Code Status on File) Date Activated Date Inactivated Comments 06/20/2024 6:23 PM * Full Code Date Activated Date Inactivated Comments 06/20/2024 12:37 PM 06/20/2024 6:23 PM * Full Code Date Activated Date Inactivated Comments 06/20/2024 1:44 AM 06/20/2024 12:37 PM Care Teams College Specialist Relationship Specialty Start Date End Date Santos Salcedo MD [address] [place] [id number] PCP - General 06/21/24
--- OUTSIDE RECORDS SUMMARY | 2025-02-17 17:29 | XMS_ITS | Clinical Summary ---
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 Maker Name Role Phone Unavailable Primary Care Provider Unavailabl e Active Problems Problem Noted Date Diagnosed Date Chronic pain of right knee 12/20/2024 Encounters Date Type Department Care Team Description 12/20/2024 9:00 AM EST - 12/20/2024 11:59 PM EST Hospital Encounter [facility] [phone] Colton Pulido MD Burger, Kenneth, GERRI Type I or II open displaced comminuted fracture of right patella with routine healing, subsequent encounter (Primary Dx) Discharge Disposition: Home or Self Care 12/01/2024 Transcribed Orders [facility] [id number] Colton Pulido MD Type I or II open displaced comminuted fracture of right patella with routine healing, subsequent encounter (Primary Dx) from Last 3 Months Social History Tobacco Use Types Packs/Day Years Used Date Smoking Tobacco: Never Assessed Sex and Gender Information Value Date Recorded Sex Assigned at Not on file Legal Sex Male 7:46 AM EST Gender Identity Not on file Sexual Orientation Not on file Plan of Treatment Health Maintenance Due Date Last Done Comments HIV screening 1976 Hepatitis C screening 1981 Lipid disorder screening 2003 Colon cancer screening, Colonoscopy 2008 Diabetes screening 2008 Pneumococcal Vaccine (50+ ye ars) (1 of 1 - PCV) 2013 Shingles vaccine (Shingrix) (1 of 2 - Shingrix (RZV) 2 Dose Standard Series) 2013 Covid-19 vaccine series ( - season) 2024 Influenza vaccine 07/04/2025 Tetanus adult (Td q 10,TDAP once) 06/19/2034 024 RSV Immunization (1 - 1-dose 75+ series) 2038 Meningococcal Vaccine Aged Out No milad alessia eligible based on patient's age to complete this topic Insurance BS BCBS BCBS Member Subscriber Plan / Payer (Ef fective 2022-Present) Name:Jarvis Gandhi Relation to Subscriber:Self Name:Jarvis Gandhi Payer ID:[id number] (NAIC) Type:Not on file Address: [place] [id number] [place] [address] BS
== END 2025-02-17 14:26 | disposition home or self-care (01) ==
LOC: HO.HMGCX 14:25
DX: K40.90 Unilateral inguinal hernia, without obstruction or gangrene, not specified as recurrent (principal)
CPT/HCPCS: 76857

== ENCOUNTER → 2025-02-17 14:29 | Outpatient (BNV) | payer BC, SELFPAY | PROVIDERS: Visit Provider Radiology Diagnostic Radiology | DX: K40.30 Unilateral inguinal hernia, with obstruction, without gangrene, not specified as recurrent (principal) | CPT/HCPCS: 76857 ==